=== PATIENT | female | born 1975 | race Caucasian/White ===

== ENCOUNTER 2024-09-01 13:35 | Inpatient (IN) | payer OTHER, SELFPAY ==
[2024-09-01 13:38] VITALS: BP 117/67; PULSE 73; RESP 15; TEMP 36.3; O2SAT 100; BMI 36.6
--- NOTE | 2024-09-01 13:59 | ED.VIS.GI ---
HPI HPI - GI History of Present Illness Chief Complaint: Abd Pain Detail of Chief Complaint: Pain right upper quadrant epigastric area with nausea Informant: patient Abdominal Pain/Flank Pain Onset: Weeks (Approximately 2 weeks) Context: Sudden Onset Timing: Intermittent (Intermittent until last evening.) Quality: Aching Location: Epigastric and RUQ Current Severity: Mild Maximum Severity: Severe Worsened by: Food; Not Worsened By Car ride or Movement Relieved by: Nothing Nausea/Vomiting/Emesis GI Symptom: Positive for Nausea; Negative for Vomiting Onset: Days Diarrhea/Melena/Hematochezia GI Symptom: Negative for Diarrhea, Melena or Hematochezia Associated Symptoms Associated Symptoms: Negative for Dysuria, Frequency, Hematuria or Urgency Narrative Narrative: Patient is a 48-year-old female. She presents with intermittent right upper quadrant epigastric pain for the past 2 weeks. The pain has been constant since last evening. She has increased nausea. The pain does radiate through to her back/intrascapular area. She attempted to eat carrots this morning and she vomited at 10 AM. She denies change in color of her urine. She has no urologic symptoms. She has no respiratory symptoms. She has had a in the past. She has never had a bowel obstruction. Prior similar symptoms: No Recent Illness/Hospitalization: No PFSH PFSH Medical History (Updated 09/01/24 @ 17:[address] Mauro Robledo MD) Hysterectomy planned Scoliosis Fallot tetralogy Home Medications ?Medication ?Instructions ?Recorded ?Last Taken ?Type hydrocodone-acetaminophen 5-325mg 1 - 2 tab PO Q6H PRN PRN Pain ##20 06/16/13 Unknown Rx 5mg-325mg Allergy/AdvReac Type Severity Reaction Status Date / Time No Known Allergies Allergy Verified 09/01/24 13:37 Surgical History (Updated 09/01/24 @ 14:05 by Spring Harding) S/P ACL repair H/O spinal fusion Social History (Updated 09/01/24 @ 14:[address] Mauro Robledo MD) household members: significant other Smoking Status: Never smoker substance use type: does not use ROS ROS ED Constitutional Constitutional ED: Denies chills, fever(s), subjective or sweats Cardiovascular Cardiovascular: Denies chest pain or palpitations Respiratory/Chest Respiratory/Chest: Denies cough, dyspnea or dyspnea on exertion Gastrointestinal Gastrointestinal: Reports abdominal pain and nausea; Denies constipation, diarrhea, melena or vomiting Genitourinary Genitourinary ED: Denies dysuria, hematuria or urinary frequency Musculoskeletal Musculoskeletal: Reports back pain; Denies arthralgias or myalgias Integumentary Denies rash Neurologic Neurologic: Denies paresthesias or weakness Hematologic/Lymphatic Hematologic/Lymphatic: Denies easy bleeding or easy bruising EXAM Physical Exam Const Vital Signs: 09/01/24 13:38 09/01/24 15:54 Temperature 97.3 F L Temperature Source Temporal Pulse Rate 73 74 Respiratory Rate 15 18 Blood Pressure 117/67 137/74 H Blood Pressure Mean 83 95 Pulse Ox 100 97 Oxygen Delivery Method Room Air Room Air Positive well nourished and well developed Constitutional Narrative: Patient appears uncomfortable. BMI is 36.6. General Appearance ED: well developed; Negative for pallor HEENT normocephalic and atraumatic Eyes PERRL and EOMs intact bilaterally General Eye ED: Yes scleral icterus Neck supple and no JVD Resp normal respiratory effort and clear to auscultation bilaterally Cardio regular rate, regular rhythm, S1 normal heart sound and S2 normal heart sound; Negative for no murmurs Cardio Narrative: Patient noted to have a click. She has a bovine valve. She also had surgery for tetralogy of Fallot. She does have a holosystolic murmur that is noted grade 2/6. GI non-distended and no masses; Negative for non-tender Auscultation: hypoactive bowel sounds Palpation: soft, tender RUQ and Muhammad's sign and guarding RUQ; Negative for rigid, hepatomegaly, splenomegaly, hernia or mass Extremity full ROM Neuro CN's II-XII intact bilaterally and moves all extremities Sensorium / Orientation: alert Psych mental status grossly normal and thought process normal Skin no wounds General Skin Exam: Negative for jaundice or pallor MDM MDM MDM Narrative Medical decision making narrative: Differential diagnosis would be abdominal pain unknown etiology, cholelithiasis with colic, acute cholecystitis, obstructing stone neck of the gallbladder, peptic ulcer disease i.e. esophagitis, gastritis, ulcer. Doubt pancreatitis since she has no history of alcohol use and there is no significant tenderness in the left upper quadrant. Appropriate blood work was ordered. If blood work is abnormal we will call in the calibration laboratory technician for ultrasound of the right upper quadrant. She was medicated with Zofran for nausea and morphine for her pain. Lab Data Labs: Laboratory Results - last 24 hr 09/01/24 14:15 WBC 11.4 H RBC 4.73 Hgb 14.5 Hct 41.8 MCV 88.4 MCH 30.7 MCHC 34.7 RDW Std Deviation 39.0 RDW Coeff of Brayan 12.0 Plt Count 243 MPV 9.1 Immature Gran % (Auto) 0.400 Neut % (Auto) 80.4 H Lymph % (Auto) 12.8 L [place] % (Auto) 5.2 Eos % (Auto) 0.9 Baso % (Auto) 0.3 Absolute Neuts (auto) 9.2 H Absolute Lymphs (auto) 1.47 Nucleated RBC % 0 Sodium 137 Potassium 5.1 Chloride 105 Carbon Dioxide 20.1 L Anion Gap 12 BUN 17 Creatinine 0.83 Estim Creat Clear Calc 102.67 Est GFR (MDRD) Non-Af 86 BUN/Creatinine Ratio 20.6 H Glucose 112 H Calcium 9.0 Total Bilirubin 0.47 Direct Bilirubin 0.11 AST 101 H ALT 57 H Alkaline Phosphatase 61 Total Protein 7.1 Albumin 3.9 Globulin 3.1 Lipase 75 Radiography Diagnostic Testing: Clinical Impression(s) from Imaging Studies Gallbladder Ultrasound 09/01/24 15:36 IMPRESSION: Dilated common bile duct. Consider MRCP. Cholelithiasis. Reading Location: [facility] Management Discussion w/another healthcare provider: Hospitalist (Spoke with Dr. Juana Quarles. Full admit MedSurg with consult to GI. She was informed that I did speak with surgery.) and Professional Tutor (Spoke with Dr. Yesica Montoya who will follow in consultation. This is a medical workup and will need MRCP and probable ERCP) Discharge Plan Triage Chief Complaint: Abd Pain ED Provider: Robledo,Mauro Dx/Rx/DC Orders Clinical Impression: Cholelithiasis, Biliary colic, Elevated transaminase level, Leukocytosis, Common bile duct dilation Prescriptions: No Action hydrocodone-acetaminophen 1 TABLET tablet 1 - 2 tab PO Q6H PRN PRN (Reason: Pain) Qty: 20 0RF Rx Instructions: causes drowsiness Primary Care Provider: DEBBI LACY [employer]TER Referrals: Christy Maharaj MD [Non-Staff] - Print Language: Japanese Disposition Disposition: Home, Self Care
[2024-09-01] MEDS: 0.9% Normal Saline (1000mL) 1,000 ML 999 ML IV (14:18)
[2024-09-01 14:26] LABS: Hematocrit 41.8 % (37-47); Hemoglobin 14.5 g/dL (12.0-15.0); Immature Granulocytes Count 0.050 X10^3/uL (0.0-0.0); Mean Corp Hgb Conc 34.7 g/dL (32-36); Mean Corpuscular Volume 88.4 fL (81-99); Mean Platelet Vol. 9.1 fl (6.2-12.0); NRBC Flagged by Analyzer 0 % (0-5); Platelet Count 243 K/mm3 (150-450); RBC Distribution Width CV 12.0 % (11.6-14.6); RBC Distribution Width SD 39.0 fl (35.1-43.9); Red Blood Count 4.73 M/mm3 (4.2-5.4); White Blood Count 11.4 K/mm3 (4.4-11.0)
--- NOTE | 2024-09-01 14:35 | CM.ED ---
Social Work Date of referral: 09/01/24 Reason for referral: No Advanced Care Directives (ACD's) on file. Referred by: Social Work Identification Patient provided consent to social work visit. Director Of Product Development requested for patient to bring in a copy of ACD's either during next visit or the next time patient is out and about in the community which patient agreed to do. Alfreda Varghese, HIDE BUFFER, SPIRITS MODEL
[2024-09-01 14:42] LABS: Lipase 75 U/L (13-75)
[2024-09-01 14:43] LABS: AST(SGOT) 101 U/L (<=31); Alanine Aminotransfer ALT/SGPT 57 U/L (<=34); Albumin, Serum 3.9 g/dL (3.5-5.0); Alkaline Phosphatase 61 U/L (35-104); Anion Gap 12 (5-15); BUN 17 mg/dL (4-19); BUN/Creat Ratio 20.6 RATIO (10-20); Bilirubin, Direct 0.11 mg/dL (0.00-0.30); Calcium,Total 9.0 mg/dL (7.6-11.0); Carbon Dioxide 20.1 mmol/L (21.0-32.0); Chloride 105 mmol/L (98-108); Estimated Creatinine Clearance 102.67 ml/min (50-250); Globulin 3.1 g/dL (2.2-4.2); Glucose 112 mg/dL (70-99); Potassium 5.1 mmol/L (3.3-5.1)
--- NOTE | 2024-09-01 15:36 | US_ITS ---
PROCEDURE: GALLBLADDER 09/01/2024 REASON FOR EXAM: CLINICAL [place], ELEVATED WHITE COUNT, ELEVATED TR COMPARISON: None. FINDINGS: Liver: 15.4 cm in length. Normal echogenicity. Hepatopetal flow. No intrahepatic biliary ductal dilation. Gallbladder: 8.2 cm in length. Negative sonographic Muhammad's sign. Gallstone measuring 9 x 7 x 4 mm. No pericholecystic fluid. Common bile duct: 11 mm. Pancreas: Visualized portions are within normal limits. Other: Right kidney measures 11 0 cm in length. 3.2 cm and 2.0 cm simple cysts. US/Gallbladder IMPRESSION: Dilated common bile duct. Consider MRCP. Cholelithiasis. Reading Location: [id number]
[2024-09-01 15:54] VITALS: BP 137/74; PULSE 74; RESP 18; O2SAT 97
--- NOTE | 2024-09-01 17:59 | HP.PCM.HOS_ITS ---
HPI - General General Date of Admission: 09/01/24 Date of Service: 09/01/24 Chief Complaint: Right upper quadrant pain HPI Narrative HILDA MARTI, is a 48-year-old female with a history of tetralogy of Fallot with repair and bovine aortic valve as well as overactive bladder presented to [facility] ED 09/01/2024 with intermittent right upper quadrant gastric pain weeks and constant last evening has had increasing nausea. Pain does radiate through to her back/intrascapular area. In the ED patient afebrile, heart rate 73 and blood pressure 117/67, respiratory 15 pulse ox 100% on room air. CBC with white blood cell count of 11.4, lipase of 75, BMP with a BUN of 17 and a creatinine 0.83. Liver profile with normal bili, AST 101, ALT 57. Patient had right upper quadrant ultrasound which demonstrated cholelithiasis and a dilated common bile duct. Surgeon on-call contacted, no acute cholecystitis it was recommended MRCP was ordered and a consult GI for possible ERCP. Hospitalist contacted for admission. Patient evaluated at bedside. She reports history as above with 2 weeks of intermittent right upper quadrant/epigastric pain that began to worsen last evening and was constant today with nausea and vomiting. Feels a little bit better with pain medication in the ED but now it is starting to wear off and symptoms are starting to return. Denies any fever at home, no changes in bowel or bladder. [facility] Medical History (Updated 09/01/24 @ 18:[address] Albertina Quarles MD) Fallot tetralogy Hysterectomy planned Overactive bladder Scoliosis Home Medications ?Medication ?Instructions ?Recorded ?Last Taken ?Type hydrocodone-acetaminophen 5-325mg 1 - 2 tab PO Q6H PRN PRN Pain ##20 06/16/13 Unknown Rx 5mg-325mg metoprolol succinate 25 mg 25 mg PO QHS Heart 09/01/24 Unknown History tablet,extended release 24 hr mirabegron 50 mg tablet,extended 50 mg PO DAILY Overac tive bladder 09/01/24 Unknown History release 24 hr Allergy/AdvReac Type Severity Reaction Status Date / Time No Known Allergies Allergy Verified 09/01/24 13:37 Surgical History (Updated 09/01/24 @ 14:05 by Spring Harding) H/O spinal fusion S/P ACL repair Social History (Updated 09/01/24 @ 14:[address] Mauro Robledo MD) household members: significant other Smoking Status: Never smoker substance use type: does not use ROS ROS Narrative General: Denies fever/chills, had some sweats when the pain was significant HENT: Denies headache, denies stuffy nose, denies sore throat EYES: Denies changes in vision Resp: Denies cough, denies shortness of breath Cardiac: Denies chest pain GI: Right upper quadrant/epigastric pain intermittent and now constant with nausea and vomiting, denies change in bowel : Denies changes in urination Extremity: Denies swelling MSK: Denies weakness Neuro: Denies any numbness/tingling Heme: Denies any bleeding or bruising Skin: Denies rashes Psychiatric: No complaints voiced Vital Signs Vital Signs Vital Signs: 09/01/24 13:38 09/01/24 15:54 Temperature 97.3 F L Temperature Source Temporal Pulse Rate 73 74 Respiratory Rate 15 18 Blood Pressure 117/67 137/74 H Blood Pressure Mean 83 95 Pulse Ox 100 97 Oxygen Delivery Method Room Air Room Air Weight Weight: 105.9 kg Body Mass Index (BMI) 36.6 Physical Exam Narrative General: Alert, oriented, no apparent distress HEENT: Atraumatic, normocephalic Eyes: Anicteric, normal conjunctiva, extraocular movements grossly intact Neck: Supple Respiratory: Clear to auscultation bilaterally, normal respiratory effort Cardiovascular: Regular rate and rhythm, does have systolic ejection murmur throughout precordium GI: Soft, nondistended, does have tenderness in epigastric and right upper quadrant Extremities: No edema Musculoskeletal: Moving all extremities Neuro: No overt focal neurological deficits Skin: No rashes appreciated Psych: Cooperative Results Lab / Micro Data 09/01/24 14:15 09/01/24 14:15 Labs: Laboratory Results - last 24 hr 09/01/24 14:15: WBC 11.4 H, RBC 4.73, Hgb 14.5, Hct 41.8, MCV 88.4, MCH 30.7, MCHC 34.7, RDW Std Deviation 39.0, RDW Coeff of Brayan 12.0, Plt Count 243, MPV 9.1, Immature Gran % (Auto) 0.400, Neut % (Auto) 80.4 H, Lymph % (Auto) 12.8 L, [place] % (Auto) 5.2, Eos % (Auto) 0.9, Baso % (Auto) 0.3, Absolute Neuts (auto) 9.2 H, Absolute Lymphs (auto) 1.47, Nucleated RBC % 0, Sodium 137, Potassium 5.1, Chloride 105, Carbon Dioxide 20.1 L, Anion Gap 12, BUN 17, Creatinine 0.83, Estim Creat Clear Calc 102.67, Est GFR (MDRD) Non-Af 86, BUN/Creatinine Ratio 20.6 H, Glucose 112 H, Calcium 9.0, Total Bilirubin 0.47, Direct Bilirubin 0.11, AST 101 H, ALT 57 H, Alkaline Phosphatase 61, Total Protein 7.1, Albumin 3.9, Globulin 3.1, Lipase 75 Imaging Radiology Impression Gallbladder Ultrasound 09/01/24 15:36 IMPRESSION: Dilated common bile duct. Consider MRCP. Cholelithiasis. Reading Location: [facility] Assessment & Plan Assessment/Plan (1) Common bile duct dilation: (2) Cholelithiasis: (3) Biliary colic: PLAN: Plan # Suspected choledocholithiasis - Right upper quadrant ultrasound with dilated common bile duct - MRCP ordered - GI consult - IV fluids - Pain control and antiemetics - Supportive care # History of overactive bladder - Continue home medication # History of tetralogy of Fallot - Patient has 4 previous cardiac surgeries and reports cardiac condition is stable, does have bovine aortic valve - Continue home metoprolol #DVT ppx: SCDs Albertina Quarles MD Charges/Coding Visit Charges Inpatient E&M: 14828 Init Hosp L1
[2024-09-01 18:23] VITALS: BP 120/77; PULSE 68; RESP 18; TEMP 36.9; O2SAT 98
[2024-09-01 19:04] VITALS: BP 132/79; PULSE 68; RESP 16; TEMP 36.6; O2SAT 100
[2024-09-01 19:33] VITALS: BMI 37.0
[2024-09-01] MEDS: 0.9% Normal Saline (1000mL) 1,000 ML 50 ML IV (19:54)
[2024-09-01 20:53] VITALS: BP 126/85; PULSE 70
[2024-09-01] MEDS: Metoprolol(XL)Succ 25 MG Tablet PO (20:53)
--- NOTE | 2024-09-01 21:01 | CON.PCM.SX_ITS ---
Assessment & Plan Assessment/Plan (1) Cholelithiasis: (2) Elevated transaminase level: (3) Common bile duct dilation: PLAN: Plan Will await labs in AM. US only showed one gallstone in the fundus, 1mm wall?no inflammation was seen doubt this is due to cholecystitis. GI consulted and MRCP ordered. Natali Montoya M.D. Pager: [phone] [facility] [address] [place] [address], Outpatient [place], [address] [place] [address] Office: [phone] HPI Consult Data Date of Consult: 09/02/24 HPI Narrative HPI Narrative: HILDA MARTI, is a 48 F who presents to the ER due to epigastric abdominal pain. Patient was found to have elevated AST and ALT. Patient states she had the pain almost immediately after drinking pain better Premier protein shake. Patient states she has had this pain previously but that has resolved on its own. Previous episodes were not really related to eating as well. Patient states she has been watching her diet has lost 20 pounds recently. Patient had an ultrasound the gallbladder showed a gallstone wall at 1 mm dilated common bile duct at 11 mm, no pericholecystic fluid. [facility] Medical History Overactive bladder Hysterectomy planned Scoliosis Fallot tetralogy Home Medications ?Medication ?Instructions ?Recorded ?Last Taken ?Type metoprolol succinate 25 mg 25 mg PO QHS Heart 09/01/24 Unknown History tablet,extended release 24 hr mirabegron 50 mg tablet,extended 50 mg PO DAILY Overac tive bladder 09/01/24 Unknown History release 24 hr Allergy/AdvReac Type Severity Reaction Status Date / Time No Known Allergies Allergy Verified 09/01/24 13:37 Surgical History S/P ACL repair H/O spinal fusion Social History (Updated 09/01/24 @ 14:[address] Mauro Robledo MD) household members: significant other Smoking Status: Never smoker substance use type: does not use ROS Constitutional Constitutional: Reports anorexia ENT HEENT: Denies dysphagia Cardiovascular Cardiovascular: Denies chest pain Respiratory/Chest Respiratory/Chest: Denies cough Gastrointestinal Gastrointestinal: Reports abdominal pain Genitourinary Genitourinary: Denies dysuria Integumentary Integumentary: Denies jaundice Neurologic Neurologic: Denies focal weakness Psychiatric Psychiatric: Denies depression Hematologic/Lymphatic Hematologic/Lymphatic: Denies easy bleeding Physical Exam Const alert, oriented x3 and no apparent distress HEENT normocephalic and head/scalp atraumatic Resp normal respiratory effort Cardio regular rate GI soft to palpation; Negative for non-distended Palpation: tender epigastric (Mild); Negative for guarding Extremity no clubbing, cyanosis or edema Skin no rashes or lesions noted Neuro CN's II-XII intact bilaterally Psych mental status grossly normal Lab / Micro Data 09/02/24 06:03 09/02/24 06:03 Labs: Laboratory Results - last 24 hr 09/01/24 14:15: WBC 11.4 H, RBC 4.73, Hgb 14.5, Hct 41.8, MCV 88.4, MCH 30.7, MCHC 34.7, RDW Std Deviation 39.0, RDW Coeff of Brayan 12.0, Plt Count 243, MPV 9.1, Immature Gran % (Auto) 0.400, Neut % (Auto) 80.4 H, Lymph % (Auto) 12.8 L, [place] % (Auto) 5.2, Eos % (Auto) 0.9, Baso % (Auto) 0.3, Absolute Neuts (auto) 9.2 H, Absolute Lymphs (auto) 1.47, Nucleated RBC % 0, Sodium 137, Potassium 5.1, Chloride 105, Carbon Dioxide 20.1 L, Anion Gap 12, BUN 17, Creatinine 0.83, Estim Creat Clear Calc 102.67, Est GFR (MDRD) Non-Af 86, BUN/Creatinine Ratio 20.6 H, Glucose 112 H, Calcium 9.0, Total Bilirubin 0.47, Direct Bilirubin 0.11, AST 101 H, ALT 57 H, Alkaline Phosphatase 61, Total Protein 7.1, Albumin 3.9, Globulin 3.1, Lipase 75 Imaging Radiology Impression Gallbladder Ultrasound 09/01/24 15:36 IMPRESSION: Dilated common bile duct. Consider MRCP. Cholelithiasis. Reading Location: [facility] Charges/Coding Visit Charges Inpatient E&M: 26557 Init Hosp L3
[2024-09-01] MEDS: Piperacil/Tazobactam 3.375 GM in 0.9% Normal Saline (50mL MB+) 50 ML IV (21:36)
[2024-09-01] MEDS: MELATONIN 10 MG TABLET PO (23:15)
[2024-09-02] VITALS (15 sets, daily range): BP systolic 95–120; BP diastolic 59–76; PULSE 51–82; RESP 14–18; TEMP 36.3–37.2; O2SAT 93–100; BMI 37.0
--- NOTE | 2024-09-02 06:00 | MRI_ITS ---
PROCEDURE: MRCP ABDOMEN WITHOUT CONTRAST 09/02/2024 REASON FOR EXAM: CHOLEDOCHOLITHIASIS TECHNIQUE: MRCP ABDOMEN WITHOUT CONTRAST Multiplanar and multisequence images were obtained. CONTRAST: None COMPARISON: None FINDINGS: There are stones visible in the dependent portion of the gallbladder with the largest measuring 0.3 cm. There is no visible gallbladder wall thickening or pericholecystic inflammation. There is no intrahepatic biliary dilation. The cystic duct, common bile duct, and pancreatic duct are normal. There is a 0.25 cm filling defect identified in the common duct, 0.8 cm from the ampulla orifice, series 8 coronal T2, image 01/03. The liver, spleen, pancreas, adrenals, and kidneys are normal in appearance. There is a 3.2 cm simple exophytic cyst in the midpole of the right kidney. There is no renal stone or hydronephrosis. Gas and stool is noted throughout the colon. The small bowel loops are not distended. There is no focal inflammatory change identified in the mesentery. Metallic artifact is noted in the lumbar region consistent with hardware. MRI/MRCP Abdomen without Contrast IMPRESSION: There are stones visible in the dependent portion of the gallbladder with the l argest measuring 0.3 cm. Here is a 0.25 cm filling defect identified in the common duct, 0.8 cm from the ampulla orifice, series 8 coronal T2, image 01/03. Reading Location: [facility]
[2024-09-02 06:28] LABS: Hematocrit 38.4 % (37-47); Hemoglobin 12.8 g/dL (12.0-15.0); Immature Granulocytes Count 0.020 X10^3/uL (0.0-0.0); Mean Corp Hgb Conc 33.3 g/dL (32-36); Mean Corpuscular Volume 91.2 fL (81-99); Mean Platelet Vol. 9.2 fl (6.2-12.0); NRBC Flagged by Analyzer 0 % (0-5); Platelet Count 213 K/mm3 (150-450); RBC Distribution Width CV 12.3 % (11.6-14.6); RBC Distribution Width SD 40.6 fl (35.1-43.9); Red Blood Count 4.21 M/mm3 (4.2-5.4); White Blood Count 5.7 K/mm3 (4.4-11.0)
[2024-09-02] MEDS: Piperacil/Tazobactam 3.375 GM in 0.9% Normal Saline (50mL MB+) 50 ML IV ×3 (06:32→21:21)
[2024-09-02 06:45] LABS: AST(SGOT) 427 U/L (<=31); Alanine Aminotransfer ALT/SGPT 505 U/L (<=34); Albumin, Serum 3.6 g/dL (3.5-5.0); Alkaline Phosphatase 80 U/L (35-104); Anion Gap 7 (5-15); BUN 12 mg/dL (4-19); BUN/Creat Ratio 14.6 RATIO (10-20); Calcium,Total 8.2 mg/dL (7.6-11.0); Carbon Dioxide 24.2 mmol/L (21.0-32.0); Chloride 108 mmol/L (98-108); Estimated Creatinine Clearance 103.75 ml/min (50-250); Globulin 2.5 g/dL (2.2-4.2); Glucose 94 mg/dL (70-99); Potassium 4.4 mmol/L (3.3-5.1)
--- NOTE | 2024-09-02 08:03 | PCM.PN.SRG ---
Subjective Subjective Patient evaluated resting comfortably in bed. She denies any nausea, vomiting. She notes tenderness in the right upper quadrant and epigatsric region with movement. Objective Data Objective Data Vital Signs: Vital Signs Temp Pulse Resp BP Pulse Ox O2 Del Method 97.8 F 51 L 14 105/67 100 Room Air 09/02/24 06:30 09/02/24 06:30 09/02/24 06:30 09/02/24 06:30 09/02/24 06:30 09/02/24 06:30 Oxygen Delivery Method Room Air Weight: 229 lb 11.547 oz Body Mass Index (BMI) 37.0 Intake & Output: Intake and Output for Last 24 Hours 08/31/24 09/01/24 09/02/24 23:59 23:59 23:59 Intake Total 1440 / 1440 50 / 50 Balance 1440 / 1440 50 / 50 Lab / Micro Data 09/02/24 06:03 09/02/24 06:03 Labs: Laboratory Results - last 24 hr 09/01/24 14:15: WBC 11.4 H, RBC 4.73, Hgb 14.5, Hct 41.8, MCV 88.4, MCH 30.7, MCHC 34.7, RDW Std Deviation 39.0, RDW Coeff of Brayan 12.0, Plt Count 243, MPV 9.1, Immature Gran % (Auto) 0.400, Neut % (Auto) 80.4 H, Lymph % (Auto) 12.8 L, [place] % (Auto) 5.2, Eos % (Auto) 0.9, Baso % (Auto) 0.3, Absolute Neuts (auto) 9.2 H, Absolute Lymphs (auto) 1.47, Nucleated RBC % 0, Sodium 137, Potassium 5.1, Chloride 105, Carbon Dioxide 20.1 L, Anion Gap 12, BUN 17, Creatinine 0.83, Estim Creat Clear Calc 102.67, Est GFR (MDRD) Non-Af 86, BUN/Creatinine Ratio 20.6 H, Glucose 112 H, Calcium 9.0, Total Bilirubin 0.47, Direct Bilirubin 0.11, AST 101 H, ALT 57 H, Alkaline Phosphatase 61, Total Protein 7.1, Albumin 3.9, Globulin 3.1, Lipase 75 09/02/24 06:03: WBC 5.7, RBC 4.21, Hgb 12.8, Hct 38.4, MCV 91.2, MCH 30.4, MCHC 33.3, RDW Std Deviation 40.6, RDW Coeff of Brayan 12.3, Plt Count 213, MPV 9.2, Immature Gran % (Auto) 0.400, Neut % (Auto) 61.2, Lymph % (Auto) 27.7, [place] % (Auto) 8.5, Eos % (Auto) 1.8, Baso % (Auto) 0.4, Absolute Neuts (auto) 3.5, Absolute Lymphs (auto) 1.57, Nucleated RBC % 0, Sodium 139, Potassium 4.4, Chloride 108, Carbon Dioxide 24.2, Anion Gap 7, BUN 12, Creatinine 0.80, Estim Creat Clear Calc 103.75, Est GFR (MDRD) Non-Af 91, BUN/Creatinine Ratio 14.6, Glucose 94, Calcium 8.2, Total Bilirubin 0.68, AST 427 H, ALT 505 H, Alkaline Phosphatase 80, Total Protein 6.1, Albumin 3.6, Globulin 2.5, Albumin/Globulin Ratio 1.5 Radiography Diagnostic Testing: Radiology Impression Gallbladder Ultrasound 09/01/24 15:36 IMPRESSION: Dilated common bile duct. Consider MRCP. Cholelithiasis. Reading Location: [id number] Physical Exam GI GI Narrative: Abdomen- tenderness right upper quadrant and epigastric region with palpation. Assessment & Plan Assessment/Plan (1) Common bile duct dilation: (2) Biliary colic: (3) Cholelithiasis: (4) Elevated transaminase level: PLAN: Plan I am following this patient in conjunction with Dr. Montoya. She will independently evaluate this patient. Labs reviewed. AST and ALT increased today Plan for an MRCP and consult to GI for possible ERCP No plans for cholecystectomy at this time We will continue to monitor this patient Charges/Coding Visit Charges Inpatient E&M: 37619 Subs Hosp L2
--- NOTE | 2024-09-02 08:17 | PCM.PN.HOSP ---
Reason for Visit Chief Complaint: Right upper quadrant pain Subjective Subjective Patient denies any significant abdominal pain at this time. Reports some slight discomfort in the right upper quadrant but no significant pain overall. Denies any nausea or vomiting today. MRI performed this morning and awaiting input from gastroenterology. Highly anticipate ERCP. Objective Data Objective Data Vital Signs: Vital Signs Temp Pulse Resp BP Pulse Ox O2 Del Method 97.8 F 51 L 14 105/67 100 Room Air 09/02/24 06:30 09/02/24 06:30 09/02/24 06:30 09/02/24 06:30 09/02/24 06:30 09/02/24 08:00 Oxygen Delivery Method Room Air Weight: 104.2 kg Body Mass Index (BMI) 37.0 Intake & Output: Intake and Output for Last 24 Hours 08/31/24 09/01/24 09/02/24 23:59 23:59 23:59 Intake Total 1440 / 1440 50 / 50 Balance 1440 / 1440 50 / 50 Lab / Micro Data 09/02/24 06:03 09/02/24 06:03 Labs: Laboratory Results - last 24 hr 09/01/24 14:15: WBC 11.4 H, RBC 4.73, Hgb 14.5, Hct 41.8, MCV 88.4, MCH 30.7, MCHC 34.7, RDW Std Deviation 39.0, RDW Coeff of Brayan 12.0, Plt Count 243, MPV 9.1, Immature Gran % (Auto) 0.400, Neut % (Auto) 80.4 H, Lymph % (Auto) 12.8 L, [place] % (Auto) 5.2, Eos % (Auto) 0.9, Baso % (Auto) 0.3, Absolute Neuts (auto) 9.2 H, Absolute Lymphs (auto) 1.47, Nucleated RBC % 0, Sodium 137, Potassium 5.1, Chloride 105, Carbon Dioxide 20.1 L, Anion Gap 12, BUN 17, Creatinine 0.83, Estim Creat Clear Calc 102.67, Est GFR (MDRD) Non-Af 86, BUN/Creatinine Ratio 20.6 H, Glucose 112 H, Calcium 9.0, Total Bilirubin 0.47, Direct Bilirubin 0.11, AST 101 H, ALT 57 H, Alkaline Phosphatase 61, Total Protein 7.1, Albumin 3.9, Globulin 3.1, Lipase 75 09/02/24 06:03: WBC 5.7, RBC 4.21, Hgb 12.8, Hct 38.4, MCV 91.2, MCH 30.4, MCHC 33.3, RDW Std Deviation 40.6, RDW Coeff of Brayan 12.3, Plt Count 213, MPV 9.2, Immature Gran % (Auto) 0.400, Neut % (Auto) 61.2, Lymph % (Auto) 27.7, [place] % (Auto) 8.5, Eos % (Auto) 1.8, Baso % (Auto) 0.4, Absolute Neuts (auto) 3.5, Absolute Lymphs (auto) 1.57, Nucleated RBC % 0, Sodium 139, Potassium 4.4, Chloride 108, Carbon Dioxide 24.2, Anion Gap 7, BUN 12, Creatinine 0.80, Estim Creat Clear Calc 103.75, Est GFR (MDRD) Non-Af 91, BUN/Creatinine Ratio 14.6, Glucose 94, Calcium 8.2, Total Bilirubin 0.68, AST 427 H, ALT 505 H, Alkaline Phosphatase 80, Total Protein 6.1, Albumin 3.6, Globulin 2.5, Albumin/Globulin Ratio 1.5 Radiography Diagnostic Testing: Radiology Impression Gallbladder Ultrasound 09/01/24 15:36 IMPRESSION: Dilated common bile duct. Consider MRCP. Cholelithiasis. Reading Location: [facility] Physical Exam Const alert, oriented x3, no apparent distress and well nourished; Negative for average body habitus Constitutional Narrative: Obese, middle-aged, white female, sitting in bed, appears nontoxic, pleasant, significant other at bedside HEENT head/scalp atraumatic, moist oral mucous membranes and oropharynx normal Resp normal respiratory effort, no retractions, no use of accessory muscles and clear to auscultation bilaterally Auscultation: Negative for rales, rhonchi or wheezes Cardio regular rate, regular rhythm, S1 normal heart sound, S2 normal heart sound, no rub, no gallops and no clicks; Negative for no murmurs Cardio Narrative: 3 out of 6 diastolic murmur, 3 out of 6 systolic murmur GI normal to inspection, nondistended, normoactive bowel sounds and soft to palpation GI Narrative: Mild tenderness right upper quadrant Extremity normal to inspection, full ROM and no clubbing, cyanosis or edema Neuro oriented x3, moves all extremities and no focal motor deficits Speech: speech normal Psych affect normal Psych Narrative: Very pleasant, appropriately interactive Assessment & Plan Assessment/Plan (1) Common bile duct dilation: (2) Elevated transaminase level: (3) Leukocytosis: (4) Biliary colic: (5) Cholelithiasis: (6) Choledocholithiasis: PLAN: Plan Abdominal pain/biliary colic secondary to choledocholithiasis - MRCP shows filling defect in the common bile duct 0.8 cm from the ampulla - ERCP is pending - Continue n.p.o. - continue IV fluids - Continue as needed pain medication and antiemetics if needed - Gastroenterology is following - general surgery is following and patient will ultimately need cholecystectomy with timing based on the recommendations from general surgery Leukocytosis - Suspect stress related as this is completely resolved today - Will continue Zosyn for now but doubt will need long-term - Will discuss with surgery at GI prior to discontinuation as anticipate stent placement Transaminitis - Secondary to the above - Anticipate downtrend tomorrow with ERCP History of tetralogy of Fallot - Status post multiple cardiac surgeries from - Last surgery with pulmonary valve replacement when she was 31 years old - Has been clinically stable - No acute issues at this time - Continue home metoprolol Overactive bladder - Continue home mirabegron Obesity - BMI is 37.1 - complicates treatment, prognosis, outcomes - Recommend weight loss DVT prophylaxis - Continue SCDs - Add subcu Lovenox CODE STATUS - Full code Charges/Coding Visit Charges Inpatient E&M: 47522 Subs Hosp L2
--- NOTE | 2024-09-02 09:44 | CASEMGMT ---
Dx:choledocholithiasis LACE:1 6-Clicks:24 Medical record reviewed and patient evaluated for identification of discharge planning needs. Based on this review, at this time criteria are not present to indicate a need for discharge planning. Will remain available to assist with discharge planning needs as identified or requested.
[2024-09-02] MEDS: Pantoprazole Sodium 40 MG in 0.9% Normal Saline (100mL MB+) 100 ML 300 MG IV (11:26)
--- NOTE | 2024-09-02 12:36 | EKG12_ITS ---
Test Reason : PREOP Blood Pressure : */* mmHG Vent. Rate : 64 BPM Atrial Rate : 64 BPM P-R Int : 182 ms QRS Dur : 160 ms QT Int : 508 ms P-R-T Axes : 51 99 81 degrees QTcB Int : 524 ms Normal sinus rhythm Right bundle branch block Abnormal ECG No previous ECGs available Confirmed by SONIA FARMER, SYED ([id number]), newspaper copy editor ANNABELLA WIHTAKER ([id number]) on 09/03/2024 1:05:38 PM Referred By: LUTHER Confirmed By: SYED SCOTT MD
--- NOTE | 2024-09-02 12:49 | PRE.ANES_ITS ---
ASA Classification* ASA Classification ASA Classification: 3 Assessment & Plan Anesthesia* Anesthesia Assessment Anesthesia Assessment: Discussed sedation and/or anesthesia options, risks, benefits, and alternatives with patient/parents/legal guardian/POA. Questions invited. The patient/parents/legal guardian/POA seems to understand and agrees to proceed with anesthesia plan. Reviewed the physical assessment, medical history, allergy history and patient home medications list prior to surgery/procedure/anesthetic and documented any changes. Performed airway and anesthesia risk assessments. Anesthesia Type Anesthesia Type: General Anesthesia Focused Assessment* Temperature: 97.9 F Pulse Rate: 58 Blood Pressure: 102/70 Respiratory Rate: 16 Pulse Ox: 99 Airway Assessment Mouth opens: >3 cm Mallampati Score: II Labs Anesthesia Preop lab: CBC WBC 5.7 K/mm3 (4.4-11.0) 09/02/24 06:03 09/02/24 RBC 4.21 M/mm3 (4.2-5.4) 09/02/24 06:03 09/02/24 Hgb 12.8 g/dL (12.0-15.0) 09/02/24 06:03 09/02/24 Hct 38.4 % (37-47) 09/02/24 06:03 09/02/24 Plt Count 213 K/mm3 (150-450) 09/02/24 06:03 09/02/24 CHEMISTRY Potassium 4.4 mmol/L (3.3-5.1) 09/02/24 06:03 09/02/24 Sodium 139 mmol/L (133-145) 09/02/24 06:03 09/02/24 BUN 12 mg/dL (4-19) 09/02/24 06:03 09/02/24 Creatinine 0.80 mg/dL (0.70-1.20) 09/02/24 06:03 09/02/24 Glucose 94 mg/dL (70-99) 09/02/24 06:03 09/02/24 TSH 0.77 uIU/mL (0.358-3.74) 12/24/13 09:09 COAG Pre-Assessment Diagnosis/Proposed Procedure Planned Operative Procedure(s): ERCP Anesthesia History Anesthesia History - product safety officer: Anesthesia History - product safety officer Hx Hospitalization Any Problems With Anesthesia Cholinesterase deficiency You/Your Family Experience fever (hyperthermia) with Relationship Recent Exposure to Contagious Disease Does patient have nerve stimulator Patient instructed to have device shut off --Does patient have Pacemaker No 09/02/24 12:42 or ICD? When Was Last Pacemaker Check QUESTION #4 FULL TEXT: You/Your Family Experience fever (hyperthermia) with Anesthesia Last Oral Intake Last Oral intake: Last Oral Intake NPO since Meds taken in AM with sips of water? Meds patient instructed to take am of surgery PONV PONV - product safety officer: PONV - product safety officer Female HX of Motion Sickness HX of N/V After Surgery Non-Smoker Duration of Surgery greater than 60 minutes Number of Risk Factors PONV Score Height & Weight Height & Weight: Anesthesia: Height & Weight Height 5 ft 6 in 09/02/24 12:42 Weight: 104.2 kg 09/02/24 12:42 Body Mass Index (BMI) 37.0 09/02/24 12:42 Respiratory Assessment Respiratory Assessment - product safety officer: Respiratory Tract Infection Hx - product safety officer Hx Respiratory Tract Infection STOP Sleep Apnea STOP Sleep Apnea - product safety officer: STOP Sleep Apnea - product safety officer Hx Hypertension No 09/01/24 19:34 Hx Sleep Apnea No 09/01/24 19:34 CPAP BIPAP Do you snore loudly (louder Yes 09/01/24 19:34 than talking or can be heard Do you often feel tired/ No 09/01/24 19:34 fatigued/ sleepy during daytime? Has anyone observed you stop No 09/01/24 19:34 breathing during sleep? STOP Results Negative 09/01/24 19:34 QUESTION #5 FULL TEXT : Do you snore loudly (louder than talking or can be heard through closed doors)? Tobacco Use History Tobacco Use History - product safety officer: Tobacco Use History - product safety officer Tobacco Use Smoking Status Never smoker 09/01/24 19:34 Hx Tobacco Use No 09/01/24 19:34 Years Smoking Packs Smoked per Day Smoking Cessation Date was within the last 15 years Hx Smoking Cessation Date Hx Smoking Cessation Counseling Hematologic Medial History Hematologic Hx - product safety officer: Hematologic Medical Hx - repairer sash and door Hx of Blood Transfusion Yes 09/01/24 19:34 Hx of Transfusion in last 3 No 09/01/24 19:34 Months Date of Last Transfusion (if within last 3 months) Ever experience any problems No 09/01/24 19:34 with transfusion(s)? Specify any problems Hx of Preganancy in last 3 No 09/01/24 19:34 Months Nurse Filling Out Transfusion DREMARIEL 09/01/24 19:34 & Questions: Date: 09/01/24 09/01/24 19:34 Time: 19:35 09/01/24 19:34 Patient unable to answer at this time (ie. confused, unrespo /Reproduction History /Reproductive History - product safety officer: /Reproductive Hx- product safety officer Hx Now No 09/01/24 19:34 Gestational Age (in weeks): EDC: Hx Hx Para Hx Section SAB No 09/01/24 19:34 Active Medications Active Medications: Current Medications Generic Name Dose Route Start Last Admin Trade Name Freq PRN Reason Stop Dose Admin Acetaminophen 650 mg 09/01/24 18:53 09/01/24 20:57 Acetaminophen 325 Mg Tablet PO 650 mg Q6H PRN PRN Administration Pain 1-10 Or Fever >100.7 Albuterol Sulfate 2.5 mg 09/01/24 18:53 Albuterol 2.5 Mg/3 Ml Vial.Neb. INHALATION Q2H PRN PRN SOB &/OR WHEEZING Sodium Chloride 1,000 mls @ 50 mls/hr 09/01/24 18:53 09/01/24 19:54 IV 09/02/24 14:52 50 mls/hr .Q20H ELOY Administration Sodium Chloride 250 mls @ 15 mls/hr 09/01/24 19:01 IV .[id number] PRN Saline Flush Sodium Chloride 250 mls @ 15 mls/hr 09/01/24 19:01 IV .[id number] PRN Additional IVPB Infusion Piperacillin Sod/Tazobactam 50 mls @ 12.5 mls/hr 09/01/24 22:00 09/02/24 10:30 Sod 3.375 gm/ Sodium Chloride IV 0 mls/hr Q8 ELOY Infusion Pantoprazole Sodium 40 mg/ 100 mls @ 300 mls/hr 09/02/24 10:00 09/02/24 11:26 Sodium Chloride IV 300 mls/hr Q24 ELOY Administration Lorazepam 0.5 mg 09/01/24 18:53 Lorazepam 0.5 Mg Tablet PO X1 PRN Anxiety with MRI Melatonin 10 mg 09/01/24 18:53 09/01/24 23:15 Melatonin 10 Mg Tablet PO 10 mg QHS PRN PRN Administration INSOMNIA Metoprolol Succinate 25 mg 09/01/24 22:00 09/01/24 20:53 Metoprolol(Xl)Succ 25 Mg Tablet PO 25 mg QHS ELOY Administration Protocol Morphine Sulfate 2 - 4 mg 09/01/24 18:53 Morphine 2 Mg/Ml Syringe IV Q3H PRN PRN Pain Score 6-10 Ondansetron HCl 4 mg 09/01/24 18:53 Ondansetron 4 Mg/2 Ml Vial IV Q8H PRN PRN NAUSEA/VOMITING Oxycodone HCl 5 mg 09/01/24 18:53 09/02/24 08:38 Oxycodone 5 Mg Tablet PO 5 mg Q4H PRN PRN Administration Pain Score 4-10 Senna/Docusate Sodium 2 tablet 09/01/24 18:53 Senna/Docusate Sodium 1 Tablet PO BID PRN PRN Constipation Sodium Chloride 10 - 40 ml 09/01/24 19:01 0.9% Saline Lock 10 Ml Syringe IV UD PRN SALINE FLUSH PFSH Medical History Overactive bladder Hysterectomy planned Scoliosis Fallot tetralogy Home Medications ?Medication ?Instructions ?Recorded ?Last Taken ?Type metoprolol succinate 25 mg 25 mg PO QHS Heart 09/01/24 Unknown History tablet,extended release 24 hr mirabegron 50 mg tablet,extended 50 mg PO DAILY Overac tive bladder 09/01/24 Unknown History release 24 hr Allergy/AdvReac Type Severity Reaction Status Date / Time No Known Allergies Allergy Verified 09/01/24 13:37 Surgical History S/P ACL repair H/O spinal fusion Social History household members: significant other Smoking Status: Never smoker substance use type: does not use Review of Systems (Anesthesia) ROS Narrative System reviewed and no additional complaints, except as documented.
[2024-09-02] MEDS: Lactated Ringers 1,000 ML 15 ML IV (12:58)
--- NOTE | 2024-09-02 13:09 | CON.PCM.GI_ITS ---
HPI Consult Data Date of Consult: 09/02/24 HPI Narrative Reason for Consultation: Choledocholithiasis HPI Narrative: HILDA MARTI, is a 48 F who presented to the ED with worsening right upper quadrant pain. She has a history of tetralogy of Fallot with repair and bovine aortic valve. In the ED patient afebrile, heart rate 73 and blood pressure 117/67, respiratory 15 pulse ox 100% on room air. CBC with white blood cell count of 11.4, lipase of 75, BMP with a BUN of 17 and a creatinine 0.83. Liver profile with normal bili, AST 101, ALT 57. Patient had right upper quadrant ultrasound which demonstrated cholelithiasis and a dilated common bile duct. MRCP was recommended and it did show to filling defects in the distal and mid common bile duct. I was consulted for therapeutic ERCP. [facility] Medical History Overactive bladder Hysterectomy planned Scoliosis Fallot tetralogy Home Medications ?Medication ?Instructions ?Recorded ?Last Taken ?Type metoprolol succinate 25 mg 25 mg PO QHS Heart 09/01/24 Unknown History tablet,extended release 24 hr mirabegron 50 mg tablet,extended 50 mg PO DAILY Overac tive bladder 09/01/24 Unknown History release 24 hr Allergy/AdvReac Type Severity Reaction Status Date / Time No Known Allergies Allergy Verified 09/01/24 13:37 Surgical History S/P ACL repair H/O spinal fusion Social History household members: significant other Smoking Status: Never smoker substance use type: does not use ROS Constitutional Constitutional: Denies fatigue, fever(s), poor appetite, weight gain or weight loss Gastrointestinal Gastrointestinal: Denies belching, bloating, change in bowel habits, change in stool character, chewing difficulty, coffee ground emesis, constipation, cramping, diarrhea, dyspepsia, dysphagia, early satiety, excessive flatus, fecal incontinence, heartburn, hematemesis, hematochezia, hemorrhoids, loose stools, melena, nausea, odynophagia, rectal bleeding, tenesmus, vomiting or weight changes Physical Exam Const alert, oriented x3, no apparent distress and healthy appearing General Appearance: cooperative GI normal to inspection, nondistended, normoactive bowel sounds, soft to palpation, non-tender and non-distended Percussion: normal to percussion Rectal Exam: deferred Lab / Micro Data 09/02/24 06:03 09/02/24 06:03 Labs: Laboratory Results - last 24 hr 09/01/24 14:15: WBC 11.4 H, RBC 4.73, Hgb 14.5, Hct 41.8, MCV 88.4, MCH 30.7, MCHC 34.7, RDW Std Deviation 39.0, RDW Coeff of Brayan 12.0, Plt Count 243, MPV 9.1, Immature Gran % (Auto) 0.400, Neut % (Auto) 80.4 H, Lymph % (Auto) 12.8 L, [place] % (Auto) 5.2, Eos % (Auto) 0.9, Baso % (Auto) 0.3, Absolute Neuts (auto) 9.2 H, Absolute Lymphs (auto) 1.47, Nucleated RBC % 0, Sodium 137, Potassium 5.1, Chloride 105, Carbon Dioxide 20.1 L, Anion Gap 12, BUN 17, Creatinine 0.83, Estim Creat Clear Calc 102.67, Est GFR (MDRD) Non-Af 86, BUN/Creatinine Ratio 20.6 H, Glucose 112 H, Calcium 9.0, Total Bilirubin 0.47, Direct Bilirubin 0.11, AST 101 H, ALT 57 H, Alkaline Phosphatase 61, Total Protein 7.1, Albumin 3.9, Globulin 3.1, Lipase 75 09/02/24 06:03: WBC 5.7, RBC 4.21, Hgb 12.8, Hct 38.4, MCV 91.2, MCH 30.4, MCHC 33.3, RDW Std Deviation 40.6, RDW Coeff of Brayan 12.3, Plt Count 213, MPV 9.2, Immature Gran % (Auto) 0.400, Neut % (Auto) 61.2, Lymph % (Auto) 27.7, [place] % (Auto) 8.5, Eos % (Auto) 1.8, Baso % (Auto) 0.4, Absolute Neuts (auto) 3.5, Absolute Lymphs (auto) 1.57, Nucleated RBC % 0, Sodium 139, Potassium 4.4, Chloride 108, Carbon Dioxide 24.2, Anion Gap 7, BUN 12, Creatinine 0.80, Estim Creat Clear Calc 103.75, Est GFR (MDRD) Non-Af 91, BUN/Creatinine Ratio 14.6, Glucose 94, Calcium 8.2, Total Bilirubin 0.68, AST 427 H, ALT 505 H, Alkaline Phosphatase 80, Total Protein 6.1, Albumin 3.6, Globulin 2.5, Albumin/Globulin Ratio 1.5 Imaging Radiology Impression Gallbladder Ultrasound 09/01/24 15:36 IMPRESSION: Dilated common bile duct. Consider MRCP. Cholelithiasis. Reading Location: [id number] MRCP 09/02/24 06:00 IMPRESSION: There are stones visible in the dependent portion of the gallbladder with the largest measuring 0.3 cm. Here is a 0.25 cm filling defect identified in the common duct, 0.8 cm from the ampulla orifice, series 8 coronal T2, image 01/03. Reading Location: [facility] Assessment & Plan Assessment/Plan (1) Common bile duct dilation: (2) Cholelithiasis: (3) Biliary colic: PLAN: Plan # This is a very pleasant 48-year-old with right upper quadrant pain increased liver enzymes and discovered to have choledocholithiasis on MRCP. She will undergo therapeutic ERCP. She was explained alternatives, risk and benefits occluding withstanding bleeding, pus, sepsis, perforation, need for surgery . She will have an ASA of 3. Charges/Coding Visit Charges Inpatient E&M: 99001 Init Hosp L2
--- NOTE | 2024-09-02 13:45 | RAD_ITS ---
PROCEDURE: ERCP BILIARY/PANCREAS 09/02/2024 REASON FOR EXAM: PAIN TECHNIQUE: ERCP BILIARY/PANCREAS COMPARISON: Prior MRI performed earlier in the day. FINDINGS: ERCP was performed by the [facility] letter carrier. Fluoroscopic imaging was provided. Radiation dose, 1 minute and 13 seconds of fluoroscopy. 43.79 mGy. RAD/ERCP Biliary/Pancreas IMPRESSION: Intraoperative fluoroscopic services provided for ERCP. Reading Location: [facility]
--- NOTE | 2024-09-02 14:13 | OP.ERCP_ITS ---
Patient Name: Leonela Haywood Procedure Date: 09/02/2024 1:00 PM Date of : 1975 Age: 48 Procedure: ERCP Indications: Common bile duct stone(s), Elevated liver enzymes Providers: Danial Powell DO Medicines: Monitored Anesthesia Care Patient Profile: This is a 48 year old female. Refer to note in patient chart for documentation of history and physical. Patient has symptoms of acute right upper quadrant abdominal pain. This patient has no history of previous ERCP. This patient has no history of surgical alteration of the upper digestive tract anatomy. Complications: No immediate complications. Procedure: Pre-Anesthesia Assessment: - Prior to the procedure, a History and Physical was performed, and patient medications and allergies were reviewed. The patient is competent. The risks and benefits of the procedure and the sedation options and risks were discussed with the patient. All questions were answered and informed consent was obtained. Patient identification and proposed procedure were verified by the physician in the pre-procedure area. Mental Status Examination: alert and oriented. Airway Examination: normal oropharyngeal airway and neck mobility. Respiratory Examination: clear to auscultation. CV Examination: normal. ASA Grade Assessment: II - A patient with mild systemic disease. After reviewing the risks and benefits, the patient was deemed in satisfactory condition to undergo the procedure. The anesthesia plan was to use moderate sedation / analgesia (conscious sedation). Immediately prior to administration of medications, the patient was re-assessed for adequacy to receive sedatives. The heart rate, respiratory rate, oxygen saturations, blood pressure, adequacy of pulmonary ventilation, and response to care were monitored throughout the procedure. The physical status of the patient was re-assessed after the procedure. After obtaining informed consent, the scope was passed under direct vision. Throughout the procedure, the patient's blood pressure, pulse, and oxygen saturations were monitored continuously. The Duodenoscope was introduced through the mouth, and advanced to the duodenum and used for direct visualization of the bile duct. The ERCP was accomplished without difficulty. The patient tolerated the procedure well. Scope In: 1:52:13 PM Scope Out: 2:04:16 PM Total Procedure Duration Time 0 hours 12 minutes 3 seconds Findings: The die casting machine operator film was normal. The esophagus was successfully intubated under direct vision. The scope was advanced to a normal major papilla in the descending duodenum without detailed examination of the pharynx, larynx and associated structures, and upper GI tract. The upper GI tract was grossly normal. A long 0.025 inch Jagwire was passed into the biliary tree. The short-nosed traction sphincterotome was passed over the guidewire and the bile duct was then deeply cannulated. Contrast was injected. I personally interpreted the bile duct images. There was brisk flow of contrast through the ducts. Image quality was excellent. Contrast extended to the main bile duct. Contrast extended to the cystic duct. Contrast extended to the gallbladder. Contrast extended to the bifurcation. Contrast extended to the entire biliary tree. Opacification of the entire opacified area, main bile duct, common bile duct, cystic duct, gallbladder, common hepatic duct, hepatic duct bifurcation, left and right hepatic ducts and all intrahepatic branches, entire biliary tree and right upper quadrant of the abdomen was successful. The maximum diameter of the ducts was 10 mm. The lower third of the main bile duct and common hepatic duct contained three stones, the largest of which was 6 mm in diameter. The entire opacified area, main bile duct, common hepatic duct, left and right hepatic ducts and all intrahepatic branches and entire biliary tree were diffusely dilated, with a stone causing an obstruction. The largest diameter was 11mm. A 5 mm biliary sphincterotomy was made with a braided traction (standard) sphincterotome using ERBE electrocautery. The sphincterotomy oozed blood. To discover objects, the biliary tree was swept with a 12 mm balloon starting at the upper third of the main bile duct, middle third of the main bile duct, lower third of the main duct, cystic duct, bifurcation, left intrahepatic duct(s), left main hepatic duct, right intrahepatic duct(s) and right main hepatic duct. Sludge was swept from the duct. All stones were removed. One 10 Fr by 7 cm temporary stent was placed 5 cm into the common bile duct. Bile flowed through the stent. The stent was in good position. Impression: - The entire main bile duct, entire biliary tree, left and right hepatic ducts and all intrahepatic branches and common hepatic duct were dilated, with a stone causing an obstruction. - Choledocholithiasis was found. Complete removal was accomplished by biliary sphincterotomy and balloon extraction. - A biliary sphincterotomy was performed. - The biliary tree was swept. - One temporary stent was placed into the common bile duct. Procedure Code(s): --- Professional --- 76933, Endoscopic retrograde cholangiopancreatography (ERCP); with placement of endoscopic stent into biliary or pancreatic duct, including pre- and post-dilation and guide wire passage, when performed, including sphincterotomy, when performed, each stent 13682, Endoscopic retrograde cholangiopancreatography (ERCP); with removal of calculi/debris from biliary/pancreatic duct(s) 96573, 26, Endoscopic catheterization of the biliary ductal system, radiological supervision and interpretation CPT copyright 2021 [employer]. All rights reserved. The codes documented in this report are preliminary and upon road grader review may be revised to meet current compliance requirements. Danial Powell DO 09/02/2024 2:13:09 PM This report has been signed electronically. Number of Addenda: 0 Note Initiated On: 09/02/2024 1:00 PM
--- NOTE | 2024-09-02 14:13 | OP.PROVAT_ITS ---
09/02/2024 Unknown Referring Re : ERCP procedure for Leonela Haywood Dear Dr. San This procedure was performed on Monday, September 02, 2024. My impressions and recommendations are as follows: Impressions : - The entire main bile duct, entire biliary tree, left and right hepatic ducts and all intrahepatic branches and common hepatic duct were dilated, with a stone causing an obstruction. - Choledocholithiasis was found. Complete removal was accomplished by biliary sphincterotomy and balloon extraction. - A biliary sphincterotomy was performed. - The biliary tree was swept. - One temporary stent was placed into the common bile duct. Recommendations : My findings are described in the full procedure note, which is enclosed. If I can be of further assistance, please feel free to contact me at . Sincerely, Danial Powell, 09/02/2024 2:13:09 PM This report has been signed electronically.
[2024-09-02] MEDS: Lactated Ringers 1,000 ML 999 ML IV ×2 (14:20→16:00)
--- NOTE | 2024-09-02 14:31 | PCM.POST.ANE ---
Anesthesia: Postop Eval I Current Vital Signs Temperature: 99 F Pulse Rate: 81 Blood Pressure: 115/59 Respiratory Rate: 16 Pulse Ox: 99 Oxygen Delivery Method: Room Air Assessment Airway patent: Yes Spontaneous unlabored respirations: Yes Mental status: Awake nausea: No Vomiting: No Anesthesia Complication: No Fluid Hydration Crystalloid volume administer (ml): 500 Total IV fluid infused: 500 Progress Note Anesthesia document: Postop Eval 1 completed: Yes
--- NOTE | 2024-09-02 16:25 | PCM.POSTANE2 ---
Anesthesia Postop Eval I Sum Postop Eval Completion status Anesthesia document: Postop Eval 1 completed: Yes Anesthesia Postop Eval I Summary Anesthesia Postop Eval I Summary: Anesthesia Postop Eval I: Assessment Summary Airway patent Yes 09/02/24 14:31 [email or web address] Spontaneous unlabored Yes 09/02/24 14:31 [email or web address] respirations Mental status Awake 09/02/24 14:31 [email or web address] nausea No 09/02/24 14:31 [email or web address] Vomiting No 09/02/24 14:31 [email or web address] Anesthesia Postop Eval I: Fluid Summary Crystalloid volume administer 500 09/02/24 14:31 [email or web address] (ml) Colloids volume administered ( ml) Blood Product volume administered (ml) Total IV fluid infused 500 09/02/24 14:31 [email or web address] Anesthesia Postop Eval I: Summary Notes Anesthesia Complication No 09/02/24 14:31 [email or web address] Anesthesia Complication Comment: Post-operative progress note Anesthesia: Postop Eval II Evaluation Mental status: Awake Pain Level: 0 nausea: No Vomiting: No
[2024-09-02] MEDS: Metoprolol(XL)Succ 25 MG Tablet PO (21:21)
[2024-09-02] MEDS: MELATONIN 10 MG TABLET PO (21:28)
[2024-09-03 02:43] VITALS: BP 106/69; PULSE 69; RESP 16; TEMP 36.5; O2SAT 97
[2024-09-03] MEDS: Piperacil/Tazobactam 3.375 GM in 0.9% Normal Saline (50mL MB+) 50 ML IV (05:38)
[2024-09-03 05:40] VITALS: BP 110/72; PULSE 68; RESP 16; TEMP 36.6; O2SAT 94
[2024-09-03 05:53] LABS: Hematocrit 39.6 % (37-47); Hemoglobin 13.3 g/dL (12.0-15.0); Immature Granulocytes Count 0.030 X10^3/uL (0.0-0.0); Mean Corp Hgb Conc 33.6 g/dL (32-36); Mean Corpuscular Volume 89.2 fL (81-99); Mean Platelet Vol. 9.4 fl (6.2-12.0); NRBC Flagged by Analyzer 0 % (0-5); Platelet Count 238 K/mm3 (150-450); RBC Distribution Width CV 11.9 % (11.6-14.6); RBC Distribution Width SD 38.5 fl (35.1-43.9); Red Blood Count 4.44 M/mm3 (4.2-5.4); White Blood Count 7.6 K/mm3 (4.4-11.0)
[2024-09-03 06:12] LABS: AST(SGOT) 157 U/L (<=31); Alanine Aminotransfer ALT/SGPT 383 U/L (<=34); Albumin, Serum 3.7 g/dL (3.5-5.0); Alkaline Phosphatase 76 U/L (35-104); Anion Gap 12 (5-15); BUN 8 mg/dL (4-19); BUN/Creat Ratio 10.4 RATIO (10-20); Calcium,Total 8.6 mg/dL (7.6-11.0); Carbon Dioxide 19.8 mmol/L (21.0-32.0); Chloride 107 mmol/L (98-108); Estimated Creatinine Clearance 109.21 ml/min (50-250); Globulin 2.7 g/dL (2.2-4.2); Glucose 116 mg/dL (70-99); Magnesium 2.1 mg/dL (1.5-2.2); Potassium 4.2 mmol/L (3.3-5.1)
--- NOTE | 2024-09-03 06:27 | PN.SURG_ITS ---
Subjective Subjective Patient is evaluated resting comfortably in bed. She notes pain has greatly improved. She denies any nausea, vomiting. She tolerated full liquids well. Objective Data Objective Data Vital Signs: Vital Signs Temp Pulse Resp BP Pulse Ox O2 Del Method 97.8 F 68 16 110/72 94 Room Air 09/03/24 05:40 09/03/24 05:40 09/03/24 05:40 09/03/24 05:40 09/03/24 05:40 09/03/24 05:40 Oxygen Delivery Method Room Air Weight: 229 lb 11.547 oz Body Mass Index (BMI) 37.0 Intake & Output: Intake and Output for Last 24 Hours 09/01/24 09/02/24 09/03/24 23:59 23:59 23:59 Intake Total 1440 / 1440 3897.08 / 3897.08 50 / 50 Output Total 2 / 2 Balance 1440 / 1440 3895.08 / 3895.08 50 / 50 Lab / Micro Data 09/03/24 05:25 09/03/24 05:25 Labs: Laboratory Results - last 24 hr 09/02/24 06:03: WBC 5.7, RBC 4.21, Hgb 12.8, Hct 38.4, MCV 91.2, MCH 30.4, MCHC 33.3, RDW Std Deviation 40.6, RDW Coeff of Brayan 12.3, Plt Count 213, MPV 9.2, Immature Gran % (Auto) 0.400, Neut % (Auto) 61.2, Lymph % (Auto) 27.7, [place] % (Auto) 8.5, Eos % (Auto) 1.8, Baso % (Auto) 0.4, Absolute Neuts (auto) 3.5, Absolute Lymphs (auto) 1.57, Nucleated RBC % 0, Sodium 139, Potassium 4.4, Chloride 108, Carbon Dioxide 24.2, Anion Gap 7, BUN 12, Creatinine 0.80, Estim Creat Clear Calc 103.75, Est GFR (MDRD) Non-Af 91, BUN/Creatinine Ratio 14.6, Glucose 94, Calcium 8.2, Total Bilirubin 0.68, AST 427 H, ALT 505 H, Alkaline Phosphatase 80, Total Protein 6.1, Albumin 3.6, Globulin 2.5, Albumin/Globulin Ratio 1.5 09/03/24 05:25: WBC 7.6, RBC 4.44, Hgb 13.3, Hct 39.6, MCV 89.2, MCH 30.0, MCHC 33.6, RDW Std Deviation 38.5, RDW Coeff of Brayan 11.9, Plt Count 238, MPV 9.4, Immature Gran % (Auto) 0.400, Neut % (Auto) 80.5 H, Lymph % (Auto) 13.1 L, [place] % (Auto) 5.9, Eos % (Auto) 0.0, Baso % (Auto) 0.1, Absolute Neuts (auto) 6.2, Absolute Lymphs (auto) 1.00, Nucleated RBC % 0, Sodium 139, Potassium 4.2, Chloride 107, Carbon Dioxide 19.8 L, Anion Gap 12, BUN 8, Creatinine 0.76, Estim Creat Clear Calc 109.21, Est GFR (MDRD) Non-Af 95, BUN/Creatinine Ratio 10.4, G lucose 116 H, Calcium 8.6, Phosphorus 3.9, Magnesium 2.1, Total Bilirubin 0.49, AST 157 H, ALT 383 H, Alkaline Phosphatase 76, Total Protein 6.3, Albumin 3.7, Globulin 2.7, Albumin/Globulin Ratio 1.4 Radiography Diagnostic Testing: Radiology Impression MRCP 09/02/24 06:00 IMPRESSION: There are stones visible in the dependent portion of the gallbladder with the largest measuring 0.3 cm. Here is a 0.25 cm filling defect identified in the common duct, 0.8 cm from the ampulla orifice, series 8 coronal T2, image 01/03. Reading Location: [facility] Retro Cholangiopancreatogram 09/02/24 13:45 IMPRESSION: Intraoperative fluoroscopic services provided for ERCP. Reading Location: [id number] Physical Exam GI GI Narrative: Abdomen- soft, slight tenderness in the epigastric region Assessment & Plan Assessment/Plan (1) Choledocholithiasis: PLAN: I am following this patient in conjunction with Dr. Montoya. Labs reviewed. AST and ALT decreased. Discussed surgery date with patient of 09/20 for a robotic cholecystectomy with Dr. Montoya If patient tolerates breakfast, she is able to be discharged from a surgical standpoint. Charges/Coding Visit Charges Inpatient E&M: 01213 Subs Hosp L2
[2024-09-03 09:18] VITALS: BP 117/71; PULSE 73; RESP 18; TEMP 36.4; O2SAT 100
--- NOTE | 2024-09-03 10:26 | PCM.DC.SUM ---
Providers Date of Admission: 09/01/24 Date of Discharge: 09/03/24 Primary Care Physician: DEBBI LACY Consultations 09/01/24 18:53 Consult: Gastroenterology Routine Consulting Provider: [facility] Reason for Consult: Suspected choledocholithiasis EMERGENT Consult: No MD Notified: Yes Date Notified: 09/02/24 Time Notified: 06:22 Method of Notification: Text Reason For Visit: CHOLEDOCHOLITHIASIS Diagnosis Discharge Diagnosis (1) Choledocholithiasis: Status: Acute Code(s): K80.50 - Calculus of bile duct without cholangitis or cholecystitis without obstruction Medications at Discharge Home Medications metoprolol succinate 25 mg tablet,extended release 24 hr 25 mg PO QHS Heart 09/01/24 mirabegron 50 mg tablet,extended release 24 hr 50 mg PO DAILY Overactive bladder 09/01/24 amoxicillin 875 mg-potassium clavulanate 125 mg tablet 1 tab PO BID #14 tabs 09/03/24 Hospital Course Operations ERCP Procedures - (Gallbladder ultrasound/MRCP) Summary of Care Provided Minutes Spent on Discharge: 38 Hospital Course: Patient is a 48-year-old white female who presents emergency department [facility] on 09/01/2024 with chief complaint of right upper quadrant pain. She has had right upper quadrant pain for weeks that began to be constant the day prior to presentation with increasing nausea. She complained that the pain did radiate to her back and intrascapular area. She been afebrile and had no chills. Vital signs on presentation showed an temperature of 97.3, heart rate 73, respiratory 15, blood pressure 117/67 and pulse ox was 100% room air. CBC showed a mildly elevated white count with a leukocytosis of 11.4 and normal hemoglobin and platelets. She did have a left shift with an 80.4% neutrophilia. Chemistry panel showed normal electrolytes with a mildly low bicarb of 20.1. Blood glucose was 112 nonfasting. Bilirubin was normal but AST was 101 and ALT was 57. Alk phos was normal. Given her symptoms a right upper quadrant ultrasound was performed and showed a dilated common bile duct and cholelithiasis. Given these findings a surgical consultation was made and the patient was requested to be admitted to the general medical floor by medicine. Choledocholithiasis was suspected and gastroenterology was consulted and an MRCP was ordered. MRCP showed filling defect consistent with choledocholithiasis and the patient was taken for ERCP on 09/02/2024. Given her leukocytosis on admission she was placed on antibiotics with Zosyn. ERCP showed dilation of the entire main bile duct, biliary tree, left and right hepatic ducts, and intrahepatic ducts with stone causing obstruction. Complete removal of choledocholithiasis was accomplished via biliary sphincterotomy and balloon extraction. The biliary tree was swept and a temporary stent was placed in the common bile duct. Patient did very well postoperatively. Her diet was advanced to regular diet low-fat on the a.m. of 09/03/2024 the patient did extremely well. Pain had resolved and she had no further nausea. General surgery reevaluated the patient has scheduled her for outpatient cholecystectomy on 09/20/2024. She will remain on antibiotics for another 7 days with Augmentin given stent placement and ERCP. Transaminases were improving at the time of discharge. She will need to follow-up with Dr. Powell in the next 4 to 6 weeks and as noted above with general surgery. No medication changes were made other than the addition of antibiotics for the next week. Patient was able to be discharged home in stable condition on 09/03/2024. She should follow-up with her primary care physician as needed. Discharge diagnoses: Abdominal pain secondary to choledocholithiasis Cholelithiasis Leukocytosis Transaminitis History of tetralogy of Fallot Overactive bladder Obesity Physical Exam Const alert, oriented x3, no apparent distress, no limitations, healthy appearing and well nourished; Negative for average body habitus Constitutional Narrative: Obese, middle-aged, white female, sitting in bed, appears nontoxic, pleasant, significant other at bedside General Appearance: cooperative, comfortable, well kempt and well developed Exam Limitations: no limitations Nutritional Appearance: obese HEENT normocephalic, head/scalp atraumatic, hearing grossly normal bilaterally, moist oral mucous membranes and oropharynx normal Eyes EOMs intact bilaterally Eyes Narrative: No scleral icterus Resp normal respiratory effort, no retractions, no use of accessory muscles and clear to auscultation bilaterally Auscultation: Negative for rales, rhonchi or wheezes Cardio regular rate, regular rhythm, S1 normal heart sound, S2 normal heart sound, no rub, no gallops and no clicks; Negative for no murmurs Cardio Narrative: 3 out of 6 diastolic murmur, 3 out of 6 systolic murmur GI normal to inspection, nondistended, normoactive bowel sounds, soft to palpation and non-tender Extremity no clubbing, cyanosis or edema Extremity Narrative: 2+ pedal pulses Skin no jaundice Neuro oriented x3, moves all extremities and no focal motor deficits Speech: speech normal Psych affect normal Psych Narrative: Very pleasant, appropriately interactive Weight / BMI Weight Weight: 104.2 kg Body Mass Index (BMI) 37.0 ABG / Lab / Microbiology Data 09/03/24 05:25 09/03/24 05:25 Laboratory: Laboratory Results - last 24 hr 09/03/24 05:25: WBC 7.6, RBC 4.44, Hgb 13.3, Hct 39.6, MCV 89.2, MCH 30.0, MCHC 33.6, RDW Std Deviation 38.5, RDW Coeff of Brayan 11.9, Plt Count 238, MPV 9.4, Immature Gran % (Auto) 0.400, Neut % (Auto) 80.5 H, Lymph % (Auto) 13.1 L, [place] % (Auto) 5.9, Eos % (Auto) 0.0, Baso % (Auto) 0.1, Absolute Neuts (auto) 6.2, Absolute Lymphs (auto) 1.00, Nucleated RBC % 0, Sodium 139, Potassium 4.2, Chloride 107, Carbon Dioxide 19.8 L, Anion Gap 12, BUN 8, Creatinine 0.76, Estim Creat Clear Calc 109.21, Est GFR (MDRD) Non-Af 95, BUN/Creatinine Ratio 10.4, Glucose 116 H, Calcium 8.6, Phosphorus 3.9, Magnesium 2.1, Total Bilirubin 0.49, AST 157 H, ALT 383 H, Alkaline Phosphatase 76, Total Protein 6.3, Albumin 3.7, Globulin 2.7, Albumin/Globulin Ratio 1.4 Radiography Diagnostic Testing: Radiology Impression MRCP 09/02/24 06:00 IMPRESSION: There are stones visible in the dependent portion of the gallbladder with the largest measuring 0.3 cm. Here is a 0.25 cm filling defect identified in the common duct, 0.8 cm from the ampulla orifice, series 8 coronal T2, image 01/03. [facility] 09/02/24 13:45 IMPRESSION: Intraoperative fluoroscopic services provided for ERCP. Reading Location: [id number] D/C Instructions Discharge Activity: Return to Normal Activity Return to work on: 09/04/24 DC O2, CPAP, BIPAP Needs Home O2 Discharge instructions: No Meaningful Use Info Meaningful Use Meaningful Use Diagnoses (Choose all that apply): None applicable Discharge Plan Admission Admit Date/Time: 09/01/24 17:59 Primary Reason for Your Visit: Abdominal pain Attending Provider: Lashanda Gil Primary Care Provider: DEBBI LACY NP Consulting Providers: Albertina Quarles Discharge Orders/Prescriptions Prescriptions: New amoxicillin-pot clavulanate 875-125 mg tablet 1 tab PO BID Qty: 14 0RF Continued metoprolol succinate 25 mg tablet extended release 24 hr 25 mg PO QHS mirabegron 50 mg tablet extended release 24 hr 50 mg PO DAILY Referrals / Follow Up: DEBBI LACY NP [Other] Christy Maharaj MD [Non-Staff] - Yesica Montoya MD [Med Staff - Active Staff] - See Referral Note (As scheduled for OR) Danial Powell DO [Med Staff - Active Staff] - See Referral Note (Call for an appointment to be seen in the next 4 to 6 weeks) Disposition Disposition (needs filled in before D/C Order can be placed): Home, Self Care Charges/Coding Visit Charges Inpatient E&M: 52235 Disch Hosp >30min
[2024-09-03] MEDS: Pantoprazole Sodium 40 MG in 0.9% Normal Saline (100mL MB+) 100 ML 300 MG IV (10:27)
--- NOTE | 2024-09-03 11:09 | PHA.DC.MC.R ---
Pharmacy [facility] Counseling Pharmacy Service has performed discharge medication reconciliation and counseling for this patient. 1. AUGMENTIN 875/125MG PO BID X 7 DAYS The patient's discharge medication list was reviewed for discrepancies and discrepancies were resolved. The patient was counseled on the following discharge medications and changes in medications for homegoing were reviewed. The Reason for Use, instructions for use, and potential side effects were reviewed for all new medications. The patient's questions regarding all of their medications were answered. The patient was able to verbally demonstrate an understanding of their discharge medications. Medications at Discharge Home Medications metoprolol succinate 25 mg tablet,extended release 24 hr 25 mg PO QHS Heart 09/01/24 mirabegron 50 mg tablet,extended release 24 hr 50 mg PO DAILY Overactive bladder 09/01/24 amoxicillin 875 mg-potassium clavulanate 125 mg tablet 1 tab PO BID #14 tabs 09/03/24
== END 2024-09-03 11:28 | disposition home or self-care (01) | DRG 446 ==
LOC: ED 17:32 → MS3 18:16
PROVIDERS: Internal Medicine Gastroenterology; Admitting Provider Internal Medicine; Emergency Provider Emergency Medicine; Visit Provider Internal Medicine
PROC: 0FC98ZZ Extirpation of Matter from Common Bile Duct, Via Natural or Artificial Opening Endoscopic (ICD-10-PCS; CPT 43260; principal; 2024-09-02 13:30)
DX: K80.71 Calculus of gallbladder and bile duct without cholecystitis with obstruction (principal); E66.9 Obesity, unspecified; K83.8 Other specified diseases of biliary tract; R74.01 Elevation of levels of liver transaminase levels; N32.81 Overactive bladder; Z68.37 Body mass index [BMI] 37.0-37.9, adult; Z79.899 Other long term (current) drug therapy
CPT/HCPCS: 36415; 74181; 74330; 76000; 76705; 80048; 80053; 80076; 83690; 83735; 84100; 85025; 93005; 99284; C2625; A4216; J2405

== ENCOUNTER 2024-09-20 09:23 | Day surgery (SDC) | payer OTHER, SELFPAY ==
[2024-09-05 15:26] LABS: Hematocrit 42.7 % (37-47); Hemoglobin 14.2 g/dL (12.0-15.0); Immature Granulocytes Count 0.010 X10^3/uL (0.0-0.0); Mean Corp Hgb Conc 33.3 g/dL (32-36); Mean Corpuscular Volume 90.3 fL (81-99); Mean Platelet Vol. 9.4 fl (6.2-12.0); NRBC Flagged by Analyzer 0 % (0-5); Platelet Count 257 K/mm3 (150-450); RBC Distribution Width CV 11.9 % (11.6-14.6); RBC Distribution Width SD 39.2 fl (35.1-43.9); Red Blood Count 4.73 M/mm3 (4.2-5.4); White Blood Count 6.4 K/mm3 (4.4-11.0)
[2024-09-05 16:45] LABS: AST(SGOT) 40 U/L (<=31); Alanine Aminotransfer ALT/SGPT 193 U/L (<=34); Albumin, Serum 4.1 g/dL (3.5-5.0); Alkaline Phosphatase 73 U/L (35-104); Bilirubin, Direct 0.13 mg/dL (0.00-0.30); Globulin 3.1 g/dL (2.2-4.2); Lipase 57 U/L (13-75)
--- NOTE | 2024-09-19 14:28 | PAT.ANESEVAL ---
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 When Was Last Pacemaker Check QUESTION #4 FULL TEXT: You/Your Family Experience fever (hyperthermia) with Anesthesia Last Oral Intake Last Oral intake: Last Oral Intake NPO since Meds taken in AM with sips of water? Meds patient instructed to take am of surgery PONV PONV - agricultural produce washer: PONV - agricultural produce washer Female Yes 09/19/24 09:42 HX of Motion Sickness No 09/19/24 09:42 HX of N/V After Surgery No 09/19/24 09:42 Non-Smoker Yes 09/19/24 09:42 Duration of Surgery greater Yes 09/19/24 09:42 than 60 minutes Number of Risk Factors 3 09/19/24 09:42 PONV Score Moderate Risk 09/19/24 09:42 Height & Weight Height & Weight: Anesthesia: Height & Weight Height 5 ft 6 in 09/02/24 12:42 Respiratory Assessment Respiratory Assessment - agricultural produce washer: Respiratory Tract Infection Hx - agricultural produce washer Hx Respiratory Tract Infection No 09/19/24 09:42 STOP Sleep Apnea STOP Sleep Apnea - agricultural produce washer: STOP Sleep Apnea - agricultural produce washer Hx Hypertension No 09/19/24 09:42 Hx Sleep Apnea No 09/19/24 09:42 CPAP BIPAP Do you snore loudly (louder No 09/19/24 09:42 than talking or can be heard Do you often feel tired/ No 09/19/24 09:42 fatigued/ sleepy during daytime? Has anyone observed you stop No 09/19/24 09:42 breathing during sleep? STOP Results Negative 09/19/24 09:42 QUESTION #5 FULL TEXT : Do you snore loudly (louder than talking or can be heard through closed doors)? Tobacco Use History Tobacco Use History - agricultural produce washer: Tobacco Use History - agricultural produce washer Tobacco Use Smoking Status Never smoker 09/19/24 09:42 Hx Tobacco Use No 09/19/24 09:42 Years Smoking Packs Smoked per Day Smoking Cessation Date was within the last 15 years Hx Smoking Cessation Date Hx Smoking Cessation Counseling Hematologic Medial History Hematologic Hx - agricultural produce washer: Hematologic Medical Hx - skip loader Hx of Blood Transfusion Yes 09/19/24 09:42 Hx of Transfusion in last 3 No 09/19/24 09:42 Months Date of Last Transfusion (if within last 3 months) Ever experience any problems No 09/19/24 09:42 with transfusion(s)? Specify any problems Hx of Preganancy in last 3 No 09/19/24 09:42 Months Nurse Filling Out Transfusion DSCHRIBER 09/19/24 09:42 & Questions: Date: 09/19/24 09/19/24 09:42 Time: 09:43 09/19/24 09:42 Patient unable to answer at this time (ie. confused, unrespo /Reproduction History /Reproductive History - agricultural produce washer: /Reproductive Hx- agricultural produce washer Hx Now No 09/19/24 09:42 Gestational Age (in weeks): EDC: Hx Hx Para Hx Section SAB No 09/19/24 09:42 Active Medications Active Medications: Current Medications Generic Name Dose Route Start Last Admin Trade Name Freq PRN Reason Stop Dose Admin Cefazolin Sodium 2 gm/ Sodium 110 mls @ 200 mls/hr 09/20/24 11:00 Chloride IV 09/20/24 11:32 INTRAOP ONE Indocyanine Green 3.75 mg/ N/A 1.5 mls @ 999 mls/hr 09/20/24 10:15 IV 09/20/24 10:16 PREOP [facility] Medical History (Updated 09/19/24 @ 09:56 by Elizabet Nieto) Wears contact lenses Alcohol use Anemia Back pain Gastric reflux Non-smoker Cardiology follow-up encounter History of echocardiogram RUQ pain Overactive bladder Scoliosis Fallot tetralogy Home Medications ?Medication ?Instructions ?Recorded ?Last Taken ?Type metoprolol succinate 25 mg 25 mg PO QHS Heart 09/01/24 Unknown History tablet,extended release 24 hr mirabegron 50 mg tablet,extended 50 mg PO DAILY Overactive bladder 09/01/24 Unknown History release 24 hr omeprazole 40 mg capsule,delayed 40 mg PO QDAY #30 caps 09/05/24 Unknown Rx release Allergy/AdvReac Type Severity Reaction Status Date / Time No Known Allergies Allergy Verified 09/19/24 09:41 Surgical History (Updated 09/19/24 @ 11:32 by Elizabet Nieto) Hx of pulmonic valve replacement Hx of repair of patent ductus arteriosus History of ERCP Hx of hysterectomy S/P ACL repair H/O spinal fusion Social History household members: significant other Smoking Status: Never smoker substance use type: does not use Audit: Pertinent Findings Pertinent Findings EKG Perinent findings: September 02, 2024. Normal sinus rhythm. Right bundle branch block. Echo (EF%) pertinent findings: October 26, 2022. 1. Tetralogy of Fallot, patent ductus arteriosus-status post PDA ligation through left thoracotomy. Status post repaired tetralogy of Fallot using a transannular patch. Status post pulmonary valve insertion using bovine pericardial valve. 2. Mild pulmonary valve stenosis with a peak gradient of 21 mmHg. 3. EF is about 61.5%. 4. No residual intracardiac shunt. 5. No significant changes compared to previous study of August 2020 Consult pertinent findings: 12/21/2023. Dr. Hobson?cardiology. 1. History of tetralogy of Fallot status post pulmonary valve replacement. No significant hemodynamic or anatomic residual or lesions. Normal left ventricular systolic function. Low normal to mildly depressed right ventricular systolic function. No significant stenosis or insufficiency. Plan?no restrictions or special precautions are required. Continue metoprolol at current dose. Aspirin to prolong valve life. Additional pertinent findings: Holter monitor. August 31, 2020. Predominant rhythm is normal sinus with complete right bundle branch block. VE burden is 0.1%. SVE burden is less than 0.1%. There were no recorded symptoms in the diary. Recommendation Anesthesia Recommendation Anesthesia recommendation: OPTIMIZED for anesthesia
[2024-09-20] VITALS (10 sets, daily range): BP systolic 98–140; BP diastolic 62–87; PULSE 65–72; RESP 12–20; TEMP 36.2–37; O2SAT 90–100; BMI 37.7
--- NOTE | 2024-09-20 08:00 | PCM.HP.BLA ---
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 US only showed one gallstone in the fundus, 1mm wall?no inflammation was seen doubt this is due to cholecystitis. GI consulted and MRCP ordered. Zosyn IV Addendum: MRCP showed choledocholithiasis pt will undergo ERCP today. Plan for outpt robotic cholecystectomy Reviewed the anatomy with the patient and discussed the procedure: robotic/laparoscopic cholecystectomy with possible cholangiograms, possible open. Review risks including but not limited to bleeding, infection, hernia, bile leak, retained gallstones requiring another procedure ERCP- Endoscopic Retrograde Cholangiopancreatography, injury to another organ (bile ducts, common bile duct, small bowel, etc.) and conversion to an open procedure. All questions were answered. Yesica Montoya M.D. Pager: [phone] [facility] [address] [place] [address], [address] [place] [address] Office: [phone] HPI Consult Data Date of Consult: 09/02/24 HPI Narrative HPI Narrative: HILDA MARTI, is a 48 F who presents to the ER due to epigastric abdominal pain. Patient was found to have elevated AST and ALT. Patient states she had the pain almost immediately after drinking pain better Premier protein shake. Patient states she has had this pain previously but that has resolved on its own. Previous episodes were not really related to eating as well. Patient states she has been watching her diet has lost 20 pounds recently. Patient had an ultrasound the gallbladder showed a gallstone wall at 1 mm dilated common bile duct at 11 mm, no pericholecystic fluid. [facility] Medical History Overactive bladder Hysterectomy planned Scoliosis Fallot tetralogy Home Medications ?Medication ?Instructions ?Recorded ?Last Taken ?Type metoprolol succinate 25 mg 25 mg PO QHS Heart 09/01/24 Unknown History tablet,extended release 24 hr mirabegron 50 mg tablet,extended 50 mg PO DAILY Overactive bladder 09/01/24 Unknown History release 24 hr Allergy/AdvReac Type Severity Reaction Status Date / Time No Known Allergies Allergy Verified 09/01/24 13:37 Surgical History S/P ACL repair H/O spinal fusion Social History (Updated 09/01/24 @ 14:[address] Mauro Robledo MD) household members: significant other Smoking Status: Never smoker substance use type: does not use ROS Constitutional Constitutional: Reports anorexia ENT HEENT: Denies dysphagia Cardiovascular Cardiovascular: Denies chest pain Respiratory/Chest Respiratory/Chest: Denies cough Gastrointestinal Gastrointestinal: Reports abdominal pain Genitourinary Genitourinary: Denies dysuria Integumentary Integumentary: Denies jaundice Neurologic Neurologic: Denies focal weakness Psychiatric Psychiatric: Denies depression Hematologic/Lymphatic Hematologic/Lymphatic: Denies easy bleeding Physical Exam Const alert, oriented x3 and no apparent distress HEENT normocephalic and head/scalp atraumatic Resp normal respiratory effort Cardio regular rate GI soft to palpation; Negative for non-distended Palpation: tender epigastric (Mild); Negative for guarding Extremity no clubbing, cyanosis or edema Skin no rashes or lesions noted Neuro CN's II-XII intact bilaterally Psych mental status grossly normal Lab / Micro Data 09/02/24 06:03 09/02/24 06:03 Labs: Laboratory Results - last 24 hr 09/01/24 14:15: WBC 11.4 H, RBC 4.73, Hgb 14.5, Hct 41.8, MCV 88.4, MCH 30.7, MCHC 34.7, RDW Std Deviation 39.0, RDW Coeff of Brayan 12.0, Plt Count 243, MPV 9.1, Immature Gran % (Auto) 0.400, Neut % (Auto) 80.4 H, Lymph % (Auto) 12.8 L, [place] % (Auto) 5.2, Eos % (Auto) 0.9, Baso % (Auto) 0.3, Absolute Neuts (auto) 9.2 H, Absolute Lymphs (auto) 1.47, Nucleated RBC % 0, Sodium 137, Potassium 5.1, Chloride 105, Carbon Dioxide 20.1 L, Anion Gap 12, BUN 17, Creatinine 0.83, Estim Creat Clear Calc 102.67, Est GFR (MDRD) Non-Af 86, BUN/Creatinine Ratio 20.6 H, Glucose 112 H, Calcium 9.0, Total Bilirubin 0.47, Direct Bilirubin 0.11, AST 101 H, ALT 57 H, Alkaline Phosphatase 61, Total Protein 7.1, Albumin 3.9, Globulin 3.1, Lipase 75 Imaging Radiology Impression Gallbladder Ultrasound 09/01/24 15:36 IMPRESSION: Dilated common bile duct. Consider MRCP. Cholelithiasis. Reading Location: [id number]
--- NOTE | 2024-09-20 09:52 | PCM.PRE.AN2 ---
ASA Classification* ASA Classification ASA Classification: 2 Assessment & Plan Anesthesia* Anesthesia Assessment Anesthesia Assessment: Discussed sedation and/or anesthesia options, risks, benefits, and alternatives with patient/parents/legal guardian/POA. Questions invited. The patient/parents/legal guardian/POA seems to understand and agrees to proceed with anesthesia plan. Reviewed the physical assessment, medical history, allergy history and patient home medications list prior to surgery/procedure/anesthetic and documented any changes. Performed airway and anesthesia risk assessments. Anesthesia Type Anesthesia Type: General History Source History Obtained from:: Patient, Chart and Parent/ Guardian Anesthesia Focused Assessment* Oxygen Delivery Method: Room Air Airway Assessment Mouth opens: >3 cm Mallampati Score: II Teeth Condition: Intact Neck Range of motion (ROM): Full ROM Labs Anesthesia Preop lab: CBC WBC 6.4 K/mm3 (4.4-11.0) 09/05/24 14:15 09/05/24 RBC 4.73 M/mm3 (4.2-5.4) 09/05/24 14:15 09/05/24 Hgb 14.2 g/dL (12.0-15.0) 09/05/24 14:15 09/05/24 Hct 42.7 % (37-47) 09/05/24 14:15 09/05/24 Plt Count 257 K/mm3 (150-450) 09/05/24 14:15 09/05/24 CHEMISTRY Potassium 4.2 mmol/L (3.3-5.1) 09/03/24 05:25 09/03/24 Sodium 139 mmol/L (133-145) 09/03/24 05:25 09/03/24 Magnesium 2.1 mg/dL (1.5-2.2) 09/03/24 05:25 09/03/24 Phosphorus 3.9 mg/dL (2.7-4.5) 09/03/24 05:25 09/03/24 BUN 8 mg/dL (4-19) 09/03/24 05:25 09/03/24 Creatinine 0.76 mg/dL (0.70-1.20) 09/03/24 05:25 09/03/24 Glucose 116 mg/dL (70-99) H 09/03/24 05:25 09/03/24 TSH 0.77 uIU/mL (0.358-3.74) 12/24/13 09:09 12/24/13 COAG Pre-Assessment Diagnosis/Proposed Procedure Planned Operative Procedure(s): ROBOTIC LAP CHOLEY WITH GRAMS Anesthesia History 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 When Was Last Pacemaker Check QUESTION #4 FULL TEXT: You/Your Family Experience fever (hyperthermia) with Anesthesia Last Oral Intake Last Oral intake: Last Oral Intake NPO since Meds taken in AM with sips of water? Meds patient instructed to take am of surgery PONV PONV - commercial airplane pilot: PONV - commercial airplane pilot Female Yes 09/19/24 09:42 HX of Motion Sickness No 09/19/24 09:42 HX of N/V After Surgery No 09/19/24 09:42 Non-Smoker Yes 09/19/24 09:42 Duration of Surgery greater Yes 09/19/24 09:42 than 60 minutes Number of Risk Factors 3 09/19/24 09:42 PONV Score Moderate Risk 09/19/24 09:42 Height & Weight Height & Weight: Anesthesia: Height & Weight Height 5 ft 6 in 09/02/24 12:42 Respiratory Assessment Respiratory Assessment - commercial airplane pilot: Respiratory Tract Infection Hx - commercial airplane pilot Hx Respiratory Tract Infection No 09/19/24 09:42 STOP Sleep Apnea STOP Sleep Apnea - commercial airplane pilot: STOP Sleep Apnea - commercial airplane pilot Hx Hypertension No 09/19/24 09:42 Hx Sleep Apnea No 09/19/24 09:42 CPAP BIPAP Do you snore loudly (louder No 09/19/24 09:42 than talking or can be heard Do you often feel tired/ No 09/19/24 09:42 fatigued/ sleepy during daytime? Has anyone observed you stop No 09/19/24 09:42 breathing during sleep? STOP Results Negative 09/19/24 09:42 QUESTION #5 FULL TEXT : Do you snore loudly (louder than talking or can be heard through closed doors)? Tobacco Use History Tobacco Use History - commercial airplane pilot: Tobacco Use History - commercial airplane pilot Tobacco Use Smoking Status Never smoker 09/19/24 09:42 Hx Tobacco Use No 09/19/24 09:42 Years Smoking Packs Smoked per Day Smoking Cessation Date was within the last 15 years Hx Smoking Cessation Date Hx Smoking Cessation Counseling Hematologic Medial History Hematologic Hx - commercial airplane pilot: Hematologic Medical Hx - account consultant Hx of Blood Transfusion Yes 09/19/24 09:42 Hx of Transfusion in last 3 No 09/19/24 09:42 Months Date of Last Transfusion (if within last 3 months) Ever experience any problems No 09/19/24 09:42 with transfusion(s)? Specify any problems Hx of Preganancy in last 3 No 09/19/24 09:42 Months Nurse Filling Out Transfusion DSCHRIBER 09/19/24 09:42 & Questions: Date: 09/19/24 09/19/24 09:42 Time: 09:43 09/19/24 09:42 Patient unable to answer at this time (ie. confused, unrespo /Reproduction History /Reproductive History - commercial airplane pilot: /Reproductive Hx- commercial airplane pilot Hx Now No 09/19/24 09:42 Gestational Age (in weeks): EDC: Hx Hx Para Hx Section SAB No 09/19/24 09:42 Active Medications Active Medications: Current Medications Generic Name Dose Route Start Last Admin Trade Name Freq PRN Reason Stop Dose Admin Cefazolin Sodium 2 gm/ Sodium 110 mls @ 200 mls/hr 09/20/24 11:00 Chloride IV 09/20/24 11:32 INTRAOP ONE Indocyanine Green 3.75 mg/ N/A 1.5 mls @ 999 mls/hr 09/20/24 10:15 IV 09/20/24 10:16 PREOP ONE Lactated Ringer's 1,000 mls @ 15 mls/hr 09/20/24 10:00 IV .Q48H ELOY PFSH Medical History (Updated 09/19/24 @ 09:56 by Elizabet Nieto) Wears contact lenses Alcohol use Anemia Back pain Gastric reflux Non-smoker Cardiology follow-up encounter History of echocardiogram RUQ pain Overactive bladder Scoliosis Fallot tetralogy Home Medications ?Medication ?Instructions ?Recorded ?Last Taken ?Type metoprolol succinate 25 mg 25 mg PO QHS Heart 09/01/24 Unknown History tablet,extended release 24 hr mirabegron 50 mg tablet,extended 50 mg PO DAILY Overactive bladder 09/01/24 Unknown History release 24 hr omeprazole 40 mg capsule,delayed 40 mg PO QDAY #30 caps 09/05/24 Unknown Rx release Allergy/AdvReac Type Severity Reaction Status Date / Time No Known Allergies Allergy Verified 09/19/24 09:41 Surgical History (Updated 09/19/24 @ 11:32 by Elizabet Nieto) Hx of pulmonic valve replacement Hx of repair of patent ductus arteriosus History of ERCP Hx of hysterectomy S/P ACL repair H/O spinal fusion Social History household members: significant other Smoking Status: Never smoker substance use type: does not use Review of Systems (Anesthesia) ROS Narrative System reviewed and no additional complaints, except as documented.
[2024-09-20] MEDS: Lactated Ringers 1,000 ML 15 ML IV (10:17)
[2024-09-20] MEDS: INDOCYANINE GREEN 3.75 MG in Syringe 1.5 ML 999 MG IV (10:17)
--- NOTE | 2024-09-20 11:00 | GALL_PTH ---
PATIENT: HILDA MARTI LOC: [facility] [place] U#:[id number] AGE/SX: 48/F ROOM: RE09/20/[address]: Dr. Yesica Montoya MD : 1975 BED: DIS: 09/20/2024 SPEC #: [id number] RECD: 09/20/24 13:17 STATUS: LEO REYajaira #: [id number] DAVID: 09/20/24 11:[address]: Yesica Montoya DEPT: SURGICAL PATHOLOGY RECD BY: Chalo Vieira ENTERED: 09/20/24 14:45 SP TYPE: JOSE DAMON DR: No Primary Care Phys Tissues: A - Gallbladder, NOS Procedures: Surgery Specimen Level III HEADER OPERATION: Robotic cholecystectomy with ICG, incisional hernia repair PRE-OP DIAGNOSIS: Cholelithiasis, transaminase level, common bile duct dilation TISSUE SUBMITTED: A- Gallbladder MICROSCOPIC DIAGNOSIS A. Gallbladder, cholecystectomy: - Chronic cholecystitis, cholelithiasis, cholesterolosis. MICROSCOPIC DESCRIPTION Slides are reviewed. GROSS DESCRIPTION A. Received in formalin labeled with the patient's name and date of . Designated as gallbladder is a 6.7 x 3.6 x 1.4 cm sofia-pink focally fatty and intact gallbladder with attached patent and dilate cystic duct (inked black, shaved), 1.0 cm in diameter. A lymph node is not present. Opening reveals hemorrhagic tenacious bile and a 0.4 cm irregular, yellow and bosselated cholelith. The mucosa is pink-red and granular with focal ulcerations and a maximum wall thickness of 0.1 cm. Cholesterolosis is present. Front Desk Host sections are submitted in 1 cassette. NC 09/20/2024 CPT:86403
[2024-09-20] MEDS: Midazolam 2 MG/2 ML Syringe IV (11:05)
[2024-09-20] MEDS: Lactated Ringers 1,000 ML 1000 ML IV (11:05)
[2024-09-20] MEDS: Lidocaine 1% (5 ml sdv) 5 ML Vial IV (11:13)
[2024-09-20] MEDS: Cefazolin 1 GM/5 ML Vial 2 GM IV (11:15)
[2024-09-20] MEDS: Bupiv/Epi 0.25% 30 ML Vial (12:24)
--- NOTE | 2024-09-20 12:31 | PCM.OPRPT ---
Operative Report (Standard) Operative Information Date of Procedure: 09/20/24 Pre-Operative Diagnosis: Cholelithiasis s/p ERCP, incisional hernia at umbilicus Post-Operative Diagnosis: Same, supraumbilical ventral hernia Surgery/Procedure Performed: Robotic cholecystectomy with ICG, repair of incisional hernia umbilicus primarily executive candidate developer: Yes Flattening Press Operator: Jazzmine Billy Tasks completed by presser first: Opening & closing and Retracting Type of Anesthesia: General/Supplemental RN Documented Start/Stop Times: Operation Date: 09/20/24 11:00 Case Time Into Pre-Op 09/20/24 09:45 Out of Pre-Op 09/20/24 11:01 Anesthesia Start 09/20/24 11:05 Into Room 09/20/24 11:05 Procedure Start 09/20/24 11:24 Procedure End 09/20/24 12:39 Anesthesia End 09/20/24 12:43 Out of Room 09/20/24 12:43 Into Recovery 09/20/24 12:46 Out of Recovery 09/20/24 13:34 Into Phase II Recovery 09/20/24 13:35 Out of Phase II 09/20/24 15:11 Procedure Start Time: 11:24 Procedure Stop Time: 12:39 Select all DRAINS/GRAFTS/IMPLANTS that apply: None Special Medications: Ancef 2 g IV x 1 Estimated Blood Loss: 10 cc Specimen collected: Yes Description of specimen(s) removed: Gallbladder Description of surgery: Indications: this is a 48 year-old female who developed abdominal pain/nausea/vomiting and on workup was found to have choledocholithiasis status post ERCP with cholelithiasis. Laparoscopic cholecystectomy was elected. Description procedure: The patient was placed on operating table in supine position. A timeout was completed verifying correct patient, procedure, site, position and special equipment prior to beginning procedure. General Anesthesia was induced. The abdomen was prepped and draped in usual sterile fashion. An incision was made in the natural skin line below the umbilicus at site of previous incisional hernia. The fascia was elevated and incised. The peritoneum was elevated and entered into the peritoneum via the hernia. Entry into the peritoneum was confirmed visually and no bowel was noted in the vicinity of the incision. Lowe trocar was placed. The abdomen was insufflated with carbon dioxide to a pressure of 12-15 mmHg. Patient tolerated insufflation well. The laparoscope was then inserted and abdomen inspected. No injuries from initial trocar placement were noted. Additional trochars were then inserted in the following locations 8 mm trocar left upper quadrant and 2 more 8 mm trochars in right lower quadrant and left lower quadrant. The abdomen was inspected no abnormalities were found. The table is placed in reverse Trendelenburg position with the right side up. Robot was docked. The adhesions between the gallbladder and omentum were taken down carefully. The dome of the gallbladder was grasped with atraumatic grasper passed through the lateral port and retracted over the dome of the liver. Infundibulum was then grasped with atraumatic grasper through the midclavicular port and retracted to the right lower quadrant. The cystic artery was noted to be running anterior to the cystic duct this was triply clipped and divided. The peritoneum overlying the gallbladder infundibulum was then incised and cystic duct and artery identified and circumferentially dissected. ICG was used to visualize the cystic duct. The cystic duct was then doubly clipped and divided close to the gallbladder. The gallbladder then dissected from its peritoneal attachments by electrocautery. Hemostasis was checked and the gallbladder was removed using the endoscopic retrieval bag through the umbilical port. The gallbladder was passed off table as specimen. The gallbladder fossa was irrigated with saline and hemostasis obtained. There is no evidence of bleeding from the gallbladder fossa or cystic artery leakage of bile from the cystic duct stump. Incisional hernia was not obvious with the umbilical trocar in place however there did appear to be a small superior umbilical ventral hernia also which was left alone. Secondary trochars removed under direct vision. No bleeding was noted the trocar sites. The laparoscope was withdrawn and umbilical trocar removed. The abdomen was allowed to collapse. Incisional hernia contents were reduced and fascia clean. The fascia of the 12 mm trocar at the umbilicus was closed with a [id number] 0 Vicryl suture. The skin was closed with sutures of 4-0 Monocryl and Steri-Strips. The patient was extubated. The patient tolerated procedure well and was taken to the postanesthesia care unit in stable condition. Surgical Findings: See operative note Complications Complications: No
--- NOTE | 2024-09-20 12:35 | DCINST_ITS ---
Discharge Instructions Diet Discharge Diet: Light diet - advance as tolerated Activity May shower in (days): 5 (Keep umbilical dressing clean dry and intact for 5 days. Okay to tape off with a Ziploc bag to shower. Or lower shower and upper sponge bath.) Lifting Restrictions: no lifting >20 lbs x 2 wks, no strenuous exercise for 4 wks Additional Activity Instructions:: - Dressing / Incision Call your doctor if your incision/area has: Continuous Slow Oozing, Sudden Increased Bleeding, Increased Pain/ Swelling, Increased Redness, Foul Smelling Discharge and Swelling at the incision site Call your doctor if you observe: Fever of 101 or Higher Remove Dressing in: 3 days (Keep OpSite and cotton ball over umbilicus other OpSite can be removed in 1 day.) Cleanse incision/area with: Do not get Incision Wet (for 3 days) Additional Dressing/Incision Instructions:: Steri-Strips will fall off in 7 to 10 days, if they do not fall off okay to remove after 10 days. Follow Up Care Please Follow Up With: Yesica Montoya MD When: Call the office for a follow-up appointment 2 weeks; after 5 PM and on the weekends call [phone] with any concerns. Test Results: Test results from this visit will be discussed in further detail at your follow- up appointment, if applicable. Discharge Plan Admission Attending Provider: Yesica Montoya Primary Care Provider: Keri Hannah Primary Instructions Print Language: Andorran Discharge Orders/Prescriptions Prescriptions: New oxycodone 5 mg capsule 5 mg PO Q6H PRN (Reason: pain) 3 Days Qty: 12 0RF Continued metoprolol succinate 25 mg tablet extended release 24 hr 25 mg PO QHS mirabegron 50 mg tablet extended release 24 hr 50 mg PO DAILY omeprazole 40 mg capsule,delayed release(DR/EC) 40 mg PO QDAY Qty: 30 0RF Rx Instructions: swallow whole; do not crush, chew, dissolve, cut, break Referrals / Follow Up: Care PhysicianKeri Primary [Primary Care Provider] - Disposition Disposition (needs filled in before D/C Order can be placed): Home, Self Care
[2024-09-20] MEDS: fentaNYL 100 MCG/2 ML Ampul 200 MCG IV (12:39)
--- NOTE | 2024-09-20 12:51 | PCM.POST.ANE ---
Anesthesia: Postop Eval I Current Vital Signs Temperature: 97.1 F Pulse Rate: 69 Blood Pressure: 140/71 Respiratory Rate: 20 Pulse Ox: 97 Oxygen Delivery Method: Room Air Assessment Airway patent: Yes Spontaneous unlabored respirations: Yes Mental status: Awake and Calm nausea: No Vomiting: No Anesthesia Complication: No Fluid Hydration Crystalloid volume administer (ml): 800 Total IV fluid infused: 800 Progress Note Anesthesia document: Postop Eval 1 completed: Yes
--- NOTE | 2024-09-20 13:42 | POSTOPAN2_ITS ---
Anesthesia Postop Eval I Sum Postop Eval Completion status Anesthesia document: Postop Eval 1 completed: Yes Anesthesia Postop Eval I Summary Anesthesia Postop Eval I Summary: Anesthesia Postop Eval I: Assessment Summary Airway patent Yes 09/20/24 12:52 [email or web address] Spontaneous unlabored Yes 09/20/24 12:52 [email or web address] respirations Mental status Awake,Calm 09/20/24 12:52 [email or web address] nausea No 09/20/24 12:52 [email or web address] Vomiting No 09/20/24 12:52 [email or web address] Anesthesia Postop Eval I: Fluid Summary Crystalloid volume administer 800 09/20/24 12:52 [email or web address] (ml) Colloids volume administered ( ml) Blood Product volume administered (ml) Total IV fluid infused 800 09/20/24 12:52 [email or web address] Anesthesia Postop Eval I: Summary Notes Anesthesia Complication No 09/20/24 12:52 [email or web address] Anesthesia Complication Comment: Post-operative progress note Anesthesia: Postop Eval II Evaluation Mental status: Awake and Calm Pain Level: 1 nausea: No Vomiting: No Complications Anesthesia Complication: No
--- NOTE | 2024-09-20 13:42 | PCM.POSTANE2 ---
Anesthesia Postop Eval I Sum Postop Eval Completion status Anesthesia document: Postop Eval 1 completed: Yes Anesthesia Postop Eval I Summary Anesthesia Postop Eval I Summary: Anesthesia Postop Eval I: Assessment Summary Airway patent Yes 09/20/24 12:52 [email or web address] Spontaneous unlabored Yes 09/20/24 12:52 [email or web address] respirations Mental status Awake,Calm 09/20/24 12:52 [email or web address] nausea No 09/20/24 12:52 [email or web address] Vomiting No 09/20/24 12:52 [email or web address] Anesthesia Postop Eval I: Fluid Summary Crystalloid volume administer 800 09/20/24 12:52 [email or web address] (ml) Colloids volume administered ( ml) Blood Product volume administered (ml) Total IV fluid infused 800 09/20/24 12:52 [email or web address] Anesthesia Postop Eval I: Summary Notes Anesthesia Complication No 09/20/24 12:52 [email or web address] Anesthesia Complication Comment: Post-operative progress note Anesthesia: Postop Eval II Evaluation Mental status: Awake and Calm Pain Level: 1 nausea: No Vomiting: No Complications Anesthesia Complication: No
== END 2024-09-20 15:21 | disposition home or self-care (01) ==
LOC: SDC 09:25 → AC 09:25
PROVIDERS: Referring Provider Surgery; Visit Provider Surgery
PROC: 0FT44ZZ Resection of Gallbladder, Percutaneous Endoscopic Approach (ICD-10-PCS; CPT 47562; principal; 2024-09-20 10:40)
DX: K80.10 Calculus of gallbladder with chronic cholecystitis without obstruction (principal); K43.9 Ventral hernia without obstruction or gangrene; K21.9 Gastro-esophageal reflux disease without esophagitis; Q21.3 Tetralogy of Fallot; N32.81 Overactive bladder; Z95.2 Presence of prosthetic heart valve; Z79.899 Other long term (current) drug therapy
CPT/HCPCS: 47563; S2900; 00790; 36415; 80076; 83690; 85025; 88304; 93005; J2405